=== PATIENT | female | born 1950 | race Caucasian/White ===

== ENCOUNTER 2017-06-26 10:49 | Inpatient (IN) ==
[2017-06-26 11:35] LABS: Bilirubin,Urine Negative (Negative); Blood,Urine Trace (Negative); Clarity,Urine Clear (Clear); Color,Urine Yellow (Yellow); Glucose,Urine (UA) Normal (Normal); Ketones,Urine Negative (Negative); Leukocyte Esterase,Urine Negative (Negative); Nitrite,Urine Negative (Negative); PH,Urine 6.5 pH Units (5.0-8.0); Protein,Urine Negative (Neg-Trace); Specific Gravity,Urine 1.011 (1.010-1.025); Urobilinogen,Urine Normal (Normal)
[2017-06-26 11:36] LABS: Bacteria,Urine None Seen per hpf (None-Few); Hyaline Casts,Urine None Seen per lpf (None-Few); Squamous Epithelial Cell,Urine Many per lpf (None-Few); WBC,Urine 0-3 per hpf (0-3)
[2017-06-26 12:24] LABS: Basophils # 0.1 K/mcL (0.0-0.2); Basophils % 0.9 %; Eosinophils # 0.1 K/mcL (0.0-0.6); Eosinophils % 0.8 %; Hematocrit 47.8 % (35.3-44.9); Immature Granulocytes % 0.2 % (0-4); Lymphocytes # 3.1 K/mcL (0.6-4.6); Lymphocytes % 35.1 %; Mean Corpuscular HGB Conc 33.5 g/dL (31.6-35.5); Mean Corpuscular Hemoglobin 29.9 pg (28.0-33.3); Mean Corpuscular Volume 89.3 fL (83.0-100.0); Mean Platelet Volume 10.1 fL (9.4-12.4); Monocytes # 0.4 K/mcL (0.0-1.3); Monocytes % 4.4 %; Neutrophils # 5.2 K/mcL (1.6-8.9); Platelet Count 245 K/mcL (140-400); Red Blood Count 5.35 M/mcL (3.82-4.97); Red Cell Distribution Width 14.2 % (11.5-14.5); Segmented Neutrophils % 58.6 %
[2017-06-26 12:39] LABS: Alanine Aminotransferase 6 Units/L (0-55); Albumin 3.5 g/dL (3.5-5.0); Alkaline Phosphatase 91 Units/L (38-126); Aspartate Amino Transferase 12 Units/L (5-34); BUN/Creatinine Ratio 9 (6-26); Bilirubin,Direct 0.2 mg/dL (0.0-0.5); Bilirubin,Indirect 0.3 mg/dL (0.0-1.2); Bilirubin,Total 0.5 mg/dL (0.2-1.2); Blood Urea Nitrogen 10 mg/dL (7-20); Calcium 9.3 mg/dL (8.6-10.8); Carbon Dioxide 27 mEq/L (19-29); Chloride 106 mEq/L (98-109); Globulin 3.4 g/dL (2.4-3.5); Glucose 92 mg/dL (70-99); Lipase 61 Units/L (8-78); Osmolality,Calculated 293 (280-300); Potassium 3.7 mEq/L (3.5-4.5); Sodium 142 mEq/L (136-145); Total Protein 6.9 g/dL (6.0-8.3); eGFR For African Americans > 60 (> 60); eGFR For Non-African Americans 51 (> 60)
[2017-06-26] MEDS ORDERED: Ondansetron 4 MG/2 ML VIAL IVP ONE (13:43)
[2017-06-26] MEDS ORDERED: *HR* Morphine 2 MG/ML SYRINGE IVP ONE (15:39)
--- NOTE | 2017-06-26 15:42 | Emergency Department Note ---
Disposition Clinical Impression: Aortic dissection, thoracoabdominal Hypertension Qualifiers: Hypertension type: essential hypertension Qualified Code(s): I10 - Essential ( primary) hypertension Disposition: Admitted As Inpatient Condition: Critical Abdominal Pain HPI - General Chief Complaint: ED Abdominal Pain Stated Complaint: abd pain since thursday Time Seen by Provider: 06/26/17 11:48 Source: patient Mode of arrival: ambulatory Limitations: no limitations Nursing Notes Reviewed: Yes Vital Signs Reviewed: Yes - History of Present Illness HPI Narrative: 67-year-old female brought to the emergency department with concerns of abdominal pain for the past 3 days. Patient states symptoms started acutely 3 days ago and have fluctuated since that time. Patient is unable to localize pain although she does state that she has pain that is bad in the right upper quadrant as well as the left lower quadrant. Patient reports intermittent episodes of loose stool but denies hematochezia or melena. Patient denies recent trauma. She has no history of fever, chills, vomiting, chest pain. Patient denies near syncopal episodes. Pain Scale: 6 - Related Data Home Medications Medication Instructions Recorded Confirmed Albuterol Sulfate [Ventolin Hfa] 2 puff IH Q4H PRN 06/26/17 06/26/17 Lisinopril [Zestril] 20 mg PO DAILY 06/26/17 06/26/17 Meclizine HCl [Verticalm] 25 mg PO TID PRN 06/26/17 06/26/17 Metoprolol [Lopressor] 25 mg PO BID 06/26/17 06/26/17 Nystatin POWDER [Nystop] 1 appl TP BID 06/26/17 06/26/17 Pravastatin Sodium [Pravachol] 40 mg PO HS 06/26/17 06/26/17 Ranitidine HCl [Zantac] 150 mg PO BID 06/26/17 06/26/17 hydroCHLOROthiazide 25 mg PO DAILY PRN 06/26/17 06/26/17 [Hydrochlorothiazide] Allergies Allergy/AdvReac Type Severity Reaction Status Date / Time No Known Allergies Allergy Verified 04/12/16 12:43 All systems ED: reviewed and negative except as stated. Review of Systems: As Per HPI Constitutional: Denies: fever, chills, weakness ENT ED: Denies: ear pain, throat pain, dental pain Cardiovascular: Denies: chest pain, palpitations Respiratory: Denies: cough, dyspnea, wheezes Gastrointestinal: Reports: abdominal pain, nausea. Denies: vomiting, diarrhea, hematemesis, melena, hematochezia Genitourinary: Denies: urgency Musculoskeletal: Denies: back pain Integumentary: Denies: rash, abrasion Neurological: Denies: headache, weakness, numbness Psychiatric: Denies: anxiety, depression Hematological/Lymphatic: Denies: easy bleeding, easy bruising Abdominal Pain PMH - Past Medical History Medical history: Reports: COPD, GERD, hyperlipidemia, hypertension, other Female Surgical History: Reports: hysterectomy, other [employer] history: Reports: no [employer] history Psychiatric history: Reports: anxiety - Social History Smoking status: Current every day smoker Alcohol use: Reports: none Drug use: Reports: none Physical Exam General: Alert and in no acute distress Skin: Warm, dry, intact Head: Normocephalic and atraumatic Neck: Supple, trachea midline and no tenderness Cardiovascular: RRR, no murmur, normal perfusion Respiratory: CTAB, no wheezing, cough, or respiratory distress Musculoskeletal: Normal strength, no tenderness, swelling or deformity GI: Soft, tender to palpation of the left lower quadrant without evidence of rigidity, guarding, or rebound. nondistended. Bowel sounds present Neuro: A&O to person, place, time and situation. No focal deficits noted on exam Psychiatric: cooperative and appropriate mood and affect. - General General appearance: alert, in no apparent distress Course Vital Signs Temperature 98 F 06/26/17 11:13 Pulse Rate 81 06/26/17 11:13 Respiratory Rate 16 06/26/17 11:13 Blood Pressure 171/121 06/26/17 11:13 O2 Sat by Pulse Oximetry 98 06/26/17 11:13 Temperature 98.6 F 06/26/17 20:10 Pulse Rate 72 06/26/17 21:00 Respiratory Rate 19 06/26/17 21:00 Blood Pressure 84/64 06/26/17 21:00 O2 Sat by Pulse Oximetry 89 06/26/17 21:00 Oxygen Delivery Oxygen Delivery Room Air Abdominal Pain - MDM Narrative Medical decision making narrative: CT of the abdomen was ordered to evaluate for possible colitis however CT results showed an aortic dissection. Patient's blood pressure was elevated at 171 systolic and as well was started to maintain BP at 120s systolic blood pressure. I spoke with Dr. Duarte who recommended patient was candidate for medical management in that the aortic dissection did not cause occlusion of any of the main vessels in the abdomen and was part of the descending aorta. Patient's blood pressure initially spiked after learning the news of a aortic dissection however BP improved with esmolol and further counseling. Patient will be admitted to the ICU for further care and evaluation. Patient evaluated by ICU physician in the emergency department. - Medical Records Medical records reviewed: Yes I reviewed the patient's medical records. - Lab Data Lab results reviewed: Yes I reviewed the patient's lab results. Result diagrams: 06/26/17 12:04 06/26/17 18:06 Lab Results 06/26/17 06/26/17 06/26/17 Range/Units 11:26 12:04 12:04 WBC 8.9 (4.3-11.1) K/mcL RBC 5.35 H (3.82-4.97) M/mcL Hgb 16.0 H (11.5-15.4) g/dL Hct 47.8 H (35.3-44.9) % MCV 89.3 (83.0-100.0) fL MCH 29.9 (28.0-33.3) pg MCHC 33.5 (31.6-35.5) g/dL RDW 14.2 (11.5-14.5) % Plt Count 245 (140-400) K/mcL MPV 10.1 (9.4-12.4) fL Immature Gran % 0.2 (0-4) % Seg Neutrophils % 58.6 % Lymphocytes % 35.1 % Monocytes % 4.4 % Eosinophils % 0.8 % Basophils % 0.9 % Neutrophils # 5.2 (1.6-8.9) K/mcL Lymphocytes # 3.1 (0.6-4.6) K/mcL Monocytes # 0.4 (0.0-1.3) K/mcL Eosinophils # 0.1 (0.0-0.6) K/mcL Basophils # 0.1 (0.0-0.2) K/mcL Sodium 142 (136-145) mEq/L Potassium 3.7 (3.5-4.5) mEq/L Chloride 106 (98-109) mEq/L Carbon Dioxide 27 (19-29) mEq/L BUN 10 (7-20) mg/dL Creatinine 1.08 (0.57-1.11) mg/dL Est GFR ( Amer) > 60 (> 60) Est GFR (Non-Af Amer) 51 L (> 60) BUN/Creatinine Ratio 9 (6-26) Glucose 92 (70-99) mg/dL Calculated Osmolality 293 (280-300) Lactic Acid (0.5-2.2) mmol/L Calcium 9.3 (8.6-10.8) mg/dL Total Bilirubin 0.5 (0.2-1.2) mg/dL Direct Bilirubin 0.2 (0.0-0.5) mg/dL Indirect Bilirubin 0.3 (0.0-1.2) mg/dL AST 12 (5-34) Units/L ALT 6 (0-55) Units/L Alkaline Phosphatase 91 (38-126) Units/L Troponin I (0-0.03) ng/mL Serum Total Protein 6.9 (6.0-8.3) g/dL Albumin 3.5 (3.5-5.0) g/dL Globulin 3.4 (2.4-3.5) g/dL Albumin/Globulin Ratio 1.0 L (1.1-2.2) Lipase 61 (8-78) Units/L Urine Color Yellow (Yellow) Urine Clarity Clear (Clear) Urine pH 6.5 (5.0-8.0) pH Units Ur Specific [place] 1.011 (1.010-1.025) Urine Protein Negative (Neg-Trace) mg/dL Urine Glucose (UA) Normal (Normal) mg/dL Urine Ketones Negative (Negative) mg/dL Urine Blood Trace H (Negative) Urine Nitrite Negative (Negative) Urine Bilirubin Negative (Negative) Urine Urobilinogen Normal (Normal) mg/dL Ur Leukocyte Esterase Negative (Negative) Urine Microscopic RBC 5-15 H (0-3) per hpf Urine Microscopic WBC 0-3 (0-3) per hpf Ur Squamous Epith Cells Many H (None-Few) per lpf Urine Bacteria None Seen (None-Few) per hpf Hyaline Casts None Seen (None-Few) per lpf Ur Culture Indicated? NO (NO) 06/26/17 06/26/17 Range/Units 12:17 16:57 WBC (4.3-11.1) K/mcL RBC (3.82-4.97) M/mcL Hgb (11.5-15.4) g/dL Hct (35.3-44.9) % MCV (83.0-100.0) fL MCH (28.0-33.3) pg MCHC (31.6-35.5) g/dL RDW (11.5-14.5) % Plt Count (140-400) K/mcL MPV (9.4-12.4) fL Immature Gran % (0-4) % Seg Neutrophils % % Lymphocytes % % Monocytes % % Eosinophils % % Basophils % % Neutrophils # (1.6-8.9) K/mcL Lymphocytes # (0.6-4.6) K/mcL Monocytes # (0.0-1.3) K/mcL Eosinophils # (0.0-0.6) K/mcL Basophils # (0.0-0.2) K/mcL Sodium (136-145) mEq/L Potassium (3.5-4.5) mEq/L Chloride (98-109) mEq/L Carbon Dioxide (19-29) mEq/L BUN (7-20) mg/dL Creatinine (0.57-1.11) mg/dL Est GFR ( Amer) (> 60) Est GFR (Non-Af Amer) (> 60) BUN/Creatinine Ratio (6-26) Glucose (70-99) mg/dL Calculated Osmolality (280-300) Lactic Acid 0.7 (0.5-2.2) mmol/L Calcium (8.6-10.8) mg/dL Total Bilirubin (0.2-1.2) mg/dL Direct Bilirubin (0.0-0.5) mg/dL Indirect Bilirubin (0.0-1.2) mg/dL AST (5-34) Units/L ALT (0-55) Units/L Alkaline Phosphatase (38-126) Units/L Troponin I 0.00 (0-0.03) ng/mL Serum Total Protein (6.0-8.3) g/dL Albumin (3.5-5.0) g/dL Globulin (2.4-3.5) g/dL Albumin/Globulin Ratio (1.1-2.2) Lipase (8-78) Units/L Urine Color (Yellow) Urine Clarity (Clear) Urine pH (5.0-8.0) pH Units Ur Specific [place] (1.010-1.025) Urine Protein (Neg-Trace) mg/dL Urine Glucose (UA) (Normal) mg/dL Urine Ketones (Negative) mg/dL Urine Blood (Negative) Urine Nitrite (Negative) Urine Bilirubin (Negative) Urine Urobilinogen (Normal) mg/dL Ur Leukocyte Esterase (Negative) Urine Microscopic RBC (0-3) per hpf Urine Microscopic WBC (0-3) per hpf Ur Squamous Epith Cells (None-Few) per lpf Urine Bacteria (None-Few) per hpf Hyaline Casts (None-Few) per lpf Ur Culture Indicated? (NO) - Radiology Data Radiology results reviewed: Yes I reviewed the patient's radiology results.
[2017-06-26] MEDS ORDERED: Esmolol 2.5 GM/250 ML MLS IVC SCH ×2 (15:45→17:17)
[2017-06-26] MEDS ORDERED: Naloxone 0.4 MG/ML INJ IVP PRN (17:14)
[2017-06-26] MEDS ORDERED: *HR* Morphine 2 MG/ML SYRINGE IVP PRN (17:14)
--- NOTE | 2017-06-26 17:22 | Pulmonology History & Physical ---
<MilanMiguel A geiger Kyara - Last Filed: 06/26/17 17:52> Date of Encounter: 06/26/17 Time of Encounter: 17:22 Assessment and Plan (1) Aortic dissection, thoracoabdominal Current visit: Yes Status: Acute Patient has evidence of descending aortic dissection, DeBakey IIIB, on CT scan. Appears to start at the midthoracic level and descend to approximately just superior to the renal arteries. No flow limitation per radiology. No evidence of involvement of the vessels branching off the aorta as creatinine is normal, lactic acid is normal, patient has good urine output. Likely related to uncontrolled hypertension as well as smoking and hyperlipidemia. Will aggressively control the patient's blood pressure with esmolol drip with a goal systolic blood pressure of less than 120. There does not appear to be a surgical indication at this time however we have asked vascular surgery to evaluate the patient. Will continue with vascular checks hourly for 2 hours and then every 2 hours thereafter. Will trend lactate, recheck BMP and monitor urine output. (2) Hypertension Current visit: Yes Status: Acute Uncontrolled at this time, likely contributing to the patient's aortic dissection as discussed above. Patient is currently on an esmolol drip with a goal systolic blood pressure less than 120. Patient will need aggressive blood pressure management at discharge. Qualifiers: Hypertension type: essential hypertension Qualified Code(s): I10 - Essential (primary) hypertension (3) Hyperlipidemia Current visit: Yes Status: Acute Likely contributing to the patient's aortic dissection as discussed above. Holding meds at this time as the patient is nothing by mouth however will restart statin once the patient is able to eat. Qualifiers: Hyperlipidemia type: unspecified Qualified Code(s): E78.5 - Hyperlipidemia , unspecified (4) Anxiety Current visit: Yes Status: Acute Patient has significant anxiety regarding her condition and reports taking Xanax at home. We will give Ativan 1 mg every 6 when necessary. (5) DVT prophylaxis Current visit: Yes Status: Acute Chemical DVT prophylaxis is contraindicated in the setting of aortic dissection. Will order EPCD's History of Present Illness Chief complaint: Abdominal pain HPI: Ms. Bustos is a 67 year old female with history of hypertension, hyperlipidemia who presents with abdominal pain. She states her pain started on Thursday. It was sudden onset and sharp in the center of her abdomen. She states the pain has been constant since then. She has also had nausea that started at the same time. She states her nausea is worse with eating. She also reports diarrhea with eating. She also reports occasional intermittent chest pain. She denies headache, neck pain, syncopal episodes, vision changes, numbness, tingling, weakness, cool extremities. She reports normal urine output. Past Med Surg Social Fam HX - Past Medical History Medical history: COPD, GERD, hyperlipidemia, hypertension, other Psychiatric history: anxiety - Past Surgical History Surgical History: non-contributory - Social History Smoking Status: Current every day smoker Smokeless Tobacco Status: No Alcohol use: none Drug use: none Medications and Allergies Albuterol Sulfate [Ventolin Hfa] 2 puff IH Q4H PRN 06/26/17 [History] Lisinopril [Zestril] 20 mg PO DAILY 06/26/17 [History] Meclizine HCl [Verticalm] 25 mg PO TID PRN 06/26/17 [History] Metoprolol [Lopressor] 25 mg PO BID 06/26/17 [History] Nystatin POWDER [Nystop] 1 appl TP BID 06/26/17 [History] Pravastatin Sodium [Pravachol] 40 mg PO HS 06/26/17 [History] Ranitidine HCl [Zantac] 150 mg PO BID 06/26/17 [History] hydroCHLOROthiazide [Hydrochlorothiazide] 25 mg PO DAILY PRN 06/26/17 [History] 3 Allergy/AdvReac Type Severity Reaction Status Date / Time No Known Allergies Allergy Verified 04/12/16 12:43 All Systems: A 10-system review of systems was performed and is negative for pertinent findings except as documented above in the HPI. - Constitutional Constitutional: no chills, no fever(s) - EENT Nose, mouth and throat: no neck pain - Cardiovascular Cardiovascular: chest pain, no claudication, no dyspnea, no leg edema, no syncope - Respiratory Respiratory: no cough, no dyspnea - Gastrointestinal Gastrointestinal: abdominal pain, diarrhea, nausea, no hematemesis, no hematochezia, no melena, no vomiting - Genitourinary Genitourinary: no dysuria, no urinary frequency - Musculoskeletal Musculoskeletal: no weakness, no numbness, no radiating pain into limb, no stiffness, no tingling - Neurological Neurological: no abnormal gait, no confusion, no dizziness, no numbness, no syncope - Psychiatric Psychiatric: anxiety - Endocrine Endocrine: no palpitations Physical Examination General appearance: no acute distress ENT: oropharynx moist Effort: normal Auscultation: bilateral: clear Cardiovascular: regular rate and rhythm Gastrointestinal: normoactive bowel sounds, soft, tender (Diffuse) Extremities: no cyanosis, no edema, no clubbing, pink and warm, pulses normal ( Upper and lower extremities, bilaterally), no ischemia or petechiae normal mental status, non-focal exam mood appropriate, anxious Results - Laboratory Findings CBC and BMP: 06/26/17 12:04 06/26/17 12:04 Abnormal lab findings: Abnormal lab results RBC 5.35 M/mcL (3.82-4.97) H 06/26/17 12:04 Hgb 16.0 g/dL (11.5-15.4) H 06/26/17 12:04 Hct 47.8 % (35.3-44.9) H 06/26/17 12:04 Est GFR (Non-Af Amer) 51 (> 60) L 06/26/17 12:04 Albumin/Globulin Ratio 1.0 (1.1-2.2) L 06/26/17 12:04 Urine Blood Trace (Negative) H 06/26/17 11:26 Urine Microscopic RBC 5-15 per hpf (0-3) H 06/26/17 11:26 Ur Squamous Epith Cells Many per lpf (None-Few) H 06/26/17 11:26 <Ez Gallagher W - Last Filed: 06/26/17 19:09> Date of Encounter: 06/26/17 History of Present Illness HPI: Ms. Bustos is a 67 year old female All Systems: A 10-system review of systems was performed and is negative for pertinent findings except as documented above in the HPI. Physical Examination Vital Signs: Vital Signs, Last 4 Hours Pulse Resp BP Pulse Ox 06/26/17 17:24 63 18 164/104 92 Results - Laboratory Findings CBC and BMP: 06/26/17 12:04 06/26/17 18:06 Abnormal lab findings: Abnormal lab results RBC 5.35 M/mcL (3.82-4.97) H 06/26/17 12:04 Hgb 16.0 g/dL (11.5-15.4) H 06/26/17 12:04 Hct 47.8 % (35.3-44.9) H 06/26/17 12:04 Est GFR (Non-Af Amer) 51 (> 60) L 06/26/17 12:04 Albumin/Globulin Ratio 1.0 (1.1-2.2) L 06/26/17 12:04 Urine Blood Trace (Negative) H 06/26/17 11:26 Urine Microscopic RBC 5-15 per hpf (0-3) H 06/26/17 11:26 Ur Squamous Epith Cells Many per lpf (None-Few) H 06/26/17 11:26 - Attending Attestation I examined this patient and my medical decision-making was reviewed with the Resident Physician. I agree with the documented findings, disposition and treatment plan as described except to the extent set forth below. We independently had [id number] contact with the patient Patient seen and examined at bedside in the ED. Labs, radiology, chart personally reviewed. Neuropsych: Awake and alert no focal deficits on exam Pulm: History of tobacco abuse smoking cessation counseling given. No acute pulmonary issues. Cards: Type b (distal) aortic dissection without evidence of branch artery involvement at this time. Vascular Surgery Consulted I spoke directly with Dr Duarte on phone and he has graciously agreed to evaluate this patient for end goals of medical management and to follow for possible complications requiring surgical intervention. Goal SBP around 120 with HR approx 60. Start with Esmolol infusion can add Vasodilator (e.g. nitropusside) if needed. Frequent Neurovascular checks. Distal pulses on my exam were all symmetric and easily palpable. FEN-GI: NPO for now. No evidence of pancreatitis or obstruction on imaging/ labs. LFTs wnl. Renal: sCr wnl no ana. monitor UOP. 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 Will also monitor Sao2 overnight for desat. Consider outpatient PSG. Endo: Glucose Monitored Integ/MSK: Skin Care per routine ICU Nursing Protocol to prevent ulcers. Dispo: Admit to ICU for close BP monitoring and vascular checks CODE: Full Code. All questions answered at bedside.
[2017-06-26] MEDS ORDERED: *HR* LORazepam 2 MG/ML VIAL IVP PRN (18:03)
[2017-06-26] MEDS: Ringers Solution, Lactated 1,000 ML IVC SCH (18:07)
[2017-06-26 18:26] LABS: BUN/Creatinine Ratio 10 (6-26); Blood Urea Nitrogen 10 mg/dL (7-20); Calcium 9.5 mg/dL (8.6-10.8); Carbon Dioxide 25 mEq/L (19-29); Chloride 106 mEq/L (98-109); Glucose 83 mg/dL (70-99); Osmolality,Calculated 286 (280-300); Sodium 139 mEq/L (136-145); eGFR For African Americans > 60 (> 60); eGFR For Non-African Americans 56 (> 60)
--- NOTE | 2017-06-26 18:55 | Vascular/Endovasc Consult Note ---
Date of Encounter: 06/26/17 Time of Encounter: 18:40 Assessment and Plan (1) Aortic dissection, thoracoabdominal Current Visit: Yes Status: Chronic The pathophysiology and natural history of aortic dissections was discussed with the patient and all questions were answered. This patient has a Type B aortic dissection which begins in the midthoracic aorta and extends to, but does not include the renal arteries. There is neither an intimal flap or any flow in a false lumen. There are aortic calcifications at the proximal end of the area of concern. These calcifications were present on her CT dated 11/16/16. Furthermore, the patient denies any acute chest, or back pain. This all suggests a chronic process rather than an acute aortic dissection. The dissection does not involve any mesenteric vessels and does not reduce aortic flow. The patient has strong, palpable pedal pulses. There is no indication for vascular intervention and the patients current gastrointestinal complaints appear unrelated to the aortic dissection. Recommend repeat CT scan in 3 months. Patient may follow-up in vascular clinic. This patient and her images were discussed with Dr. Suarez and Dr. Gallagher. (2) Abdominal pain Current Visit: Yes Status: Chronic The patient reports left sided abdominal pain which is greatest in the left lower quadrant for the last 4 days. She denies any fevers or chills. She denies emesis, but reports nausea and diarrhea after eating. She denies any rectal bleeding or melena. Her left lower quadrant is tender on physical exam. Her WBC count and her lactic acid are normal. As previously stated, her symptoms are remote from her chronic thoracic aortic dissection. Further evaluation of her gastrointestinal complaints is warranted. Qualifiers: Abdominal location: left lower quadrant Qualified Code(s): R10.32 - Left lower quadrant pain (3) Hyperlipidemia Current Visit: Yes Status: Acute Qualifiers: Hyperlipidemia type: unspecified Qualified Code(s): E78.5 - Hyperlipidemia , unspecified (4) Hypertension Current Visit: Yes Status: Acute Qualifiers: Hypertension type: essential hypertension Qualified Code(s): I10 - Essential (primary) hypertension - History of Present Illness Consult date: 06/26/17 Requesting physician: Ez Gallagher Consult reason: aortic dissection Chief complaint: abdominal pain History of present illness: Ms. Bustos is a 67 year old female who reports that on 06/23/17 she began to experience left lower quadrant pain associated with nausea and diarrhea. She reports that she has had episodes of diarrhea after eating during the last few days. She denies any fevers or chills. She denies any vomiting. She denies rectal bleeding or melena. Due to her persistent symptoms, she presented to the ER for further evaluation. part of her evaluation she underwent a a CT scan of the chest, abdomen and pelvis. A thoracic aortic dissection was described. The patient was admitted to [facility] ICU and vascular surgery was consulted for further evaluation. The patient denies any acute onset chest or back pain. She denies any shortness of breath. Past Med Surg Social Fam HX - Past Medical History Medical history: COPD, GERD, hyperlipidemia, hypertension, other Psychiatric history: anxiety - Past Surgical History Surgical History: non-contributory - Social History Smoking Status: Current every day smoker Smokeless Tobacco Status: No Alcohol use: none Drug use: none Medications and Allergies Albuterol Sulfate [Ventolin Hfa] 2 puff IH Q4H PRN 06/26/17 [History] Lisinopril [Zestril] 20 mg PO DAILY 06/26/17 [History] Meclizine HCl [Verticalm] 25 mg PO TID PRN 06/26/17 [History] Metoprolol [Lopressor] 25 mg PO BID 06/26/17 [History] Nystatin POWDER [Nystop] 1 appl TP BID 06/26/17 [History] Pravastatin Sodium [Pravachol] 40 mg PO HS 06/26/17 [History] Ranitidine HCl [Zantac] 150 mg PO BID 06/26/17 [History] hydroCHLOROthiazide [Hydrochlorothiazide] 25 mg PO DAILY PRN 06/26/17 [History] 3 Allergy/AdvReac Type Severity Reaction Status Date / Time No Known Allergies Allergy Verified 04/12/16 12:43 All Systems Review: A 10-system review of systems was performed and is negative for pertinent findings except as documented above in the HPI. - Constitutional Constitutional: no chills, no fever(s), no headache(s) - EENT Eyes: no blurred vision - Cardiovascular Cardiovascular: no chest pain at rest, no chest pain with exertion, no dyspnea at rest, no dyspnea on exertion - Gastrointestinal Gastrointestinal: abdominal pain, diarrhea, no hematochezia, no melena Exam Vital Signs, Last 4 Hours Temp Pulse Resp BP Pulse Ox 06/26/17 17:48 100.4 F H 71 22 151/104 93 06/26/17 17:26 18 151/94 06/26/17 17:24 63 18 164/104 92 General: Present: Conversant, No Apparent Distress HEENT: Present: Atraumatic, Trachea midline, Pupils equal Neck: Absent: JVD, Lymphadenopathy Cardiac: Present: Reg Rate and Rhythm Lungs: Present: Normal Breath Sounds, No Wheeze, Rales, Rhonchi Neuro: Present: Alert and responsive, No focal deficits noted, Motor nerves grossly intact, Sensory nerves grossly intact Abdomen: Present: Soft, Other (left sided abdominal tenderness greatest in the left lower quadrant, no rebound or guarding). Absent: Masses Vascular: Present: Normal capillary refill, Pulse, normal. Absent: Cyanosis, Edema Skin: Absent: No rashes noted on visualized skin Musculoskeletal: Absent: No Chest Wall Tenderness Consult Discharge Plan - Plan Referrals: Charlotte Cortez CNP [Primary Care Provider] -
[2017-06-26] MEDS: *HR* Morphine 2 MG/ML SYRINGE IVP PRN (20:20)
[2017-06-26] MEDS: Ondansetron 4 MG/2 ML VIAL IVP PRN (20:29)
[2017-06-27] MEDS: Ondansetron 4 MG/2 ML VIAL IVP PRN (04:45)
[2017-06-27 05:59] LABS: Basophils % 0.4 %; Eosinophils # 0.1 K/mcL (0.0-0.6); Eosinophils % 1.2 %; Hematocrit 44.7 % (35.3-44.9); Hemoglobin 14.5 g/dL (11.5-15.4); Immature Granulocytes % 0.2 % (0-4); Lymphocytes # 1.9 K/mcL (0.6-4.6); Lymphocytes % 18.7 %; Mean Corpuscular HGB Conc 32.4 g/dL (31.6-35.5); Mean Corpuscular Hemoglobin 29.6 pg (28.0-33.3); Mean Corpuscular Volume 91.2 fL (83.0-100.0); Mean Platelet Volume 9.8 fL (9.4-12.4); Monocytes # 0.6 K/mcL (0.0-1.3); Monocytes % 5.4 %; Neutrophils # 7.7 K/mcL (1.6-8.9); Platelet Count 203 K/mcL (140-400); Red Cell Distribution Width 14.5 % (11.5-14.5); Segmented Neutrophils % 74.1 %
[2017-06-27 06:03] LABS: INR 1.1; Prothrombin Time 12.4 Seconds (9.4-12.1)
[2017-06-27 06:10] LABS: Calcium 8.9 mg/dL (8.6-10.8); Potassium 4.1 mEq/L (3.5-4.5)
[2017-06-27] MEDS: *HR* Morphine 2 MG/ML SYRINGE IVP PRN (06:13)
[2017-06-27] MEDS: Ringers Solution, Lactated 1,000 ML IVC SCH ×3 (06:13→22:33)
[2017-06-27] MEDS ORDERED: ALPRAZolam 0.5 MG TABLET PO PRN (07:25)
[2017-06-27] MEDS ORDERED: Ondansetron 4 MG/2 ML VIAL IVP PRN (07:47)
[2017-06-27] MEDS ORDERED: *HR* Morphine 2 MG/ML SYRINGE IVP PRN (07:47)
[2017-06-27] MEDS ORDERED: Naloxone 0.4 MG/ML INJ IVP PRN (07:47)
[2017-06-27] MEDS: ALPRAZolam 0.5 MG TABLET PO PRN ×2 (09:05→16:15)
--- NOTE | 2017-06-27 09:45 | Pulmonology Progress Note ---
Date of Encounter: 06/27/17 Time of Encounter: 09:45 Assessment and Plan (1) Aortic dissection, thoracoabdominal Current Visit: Yes Status: Chronic Seen by Vascular surgery who feels this is chronic. no acute surgical indication nor requirement for close BP monitoring/Infusion of anti HTN med. Needs overall better BP control tobacco cessation statin therapy and repeat CT with Vasc Surgery f/u in 3 months (2) Tobacco abuse Current Visit: Yes Status: Acute tobacco cessation counseling given. Nicotine patch prn (3) Hypertension Current Visit: Yes Status: Acute restart home Beta santana. hold ACei for slight increase in creatinine titration while inpatient Qualifiers: Hypertension type: essential hypertension Qualified Code(s): I10 - Essential (primary) hypertension (4) Anxiety Current Visit: Yes Status: Acute cont home dose of xanax. (5) Hyperlipidemia Current Visit: Yes Status: Acute cont statin Qualifiers: Hyperlipidemia type: unspecified Qualified Code(s): E78.5 - Hyperlipidemia , unspecified (6) DVT prophylaxis Current Visit: Yes Status: Acute ok for chemical dvt prophylaxis (7) Abdominal pain Current Visit: Yes Status: Chronic no acute evidence of obstruction on imaging. No evidence of pancreatitis or hepatobiliary process. ?Gastroenteritis. Antiemetics and pain control as needed. Will trial diet today. Stable for transfer to [facility] for ongoing care. Report called by resident to Dr Medina who kindly accepted this patient in transfer. Qualifiers: Abdominal location: left lower quadrant Qualified Code(s): R10.32 - Left lower quadrant pain Subjective Principal diagnosis: Abdominal Pain. Interval history: Did well overnight. Abdominal Pain is improving. Nausea also is improving with antiemetics. She is requesting to try and eat something. Objective PUL Vital signs: Last Vital Signs Temp 100.7 F H 06/27/17 08:30 Pulse 93 06/27/17 09:35 Resp 18 06/27/17 08:30 BP 102/67 06/27/17 08:30 Pulse Ox 93 06/27/17 08:30 General appearance: no acute distress Eyes: nonicteric ENT: oropharynx moist Auscultation: bilateral: clear Cardiovascular: regular rate and rhythm Gastrointestinal: normoactive bowel sounds Integumentary: normal Extremities: no cyanosis, no edema, no clubbing, pink and warm, pulses normal Musculoskeletal: no deformities normal mental status, non-focal exam mood appropriate Results - Laboratory Findings CBC and BMP: 06/27/17 05:53 06/27/17 05:53 PT/INR, D-dimer PT 12.4 Seconds (9.4-12.1) H 06/27/17 05:53 Abnormal lab findings: Abnormal lab results PT 12.4 Seconds (9.4-12.1) H 06/27/17 05:53 Creatinine 1.16 mg/dL (0.57-1.11) H 06/27/17 05:53 Est GFR ( Amer) 57 (> 60) L 06/27/17 05:53 Est GFR (Non-Af Amer) 47 (> 60) L 06/27/17 05:53 Albumin/Globulin Ratio 1.0 (1.1-2.2) L 06/26/17 12:04 Urine Blood Trace (Negative) H 06/26/17 11:26 Urine Microscopic RBC 5-15 per hpf (0-3) H 06/26/17 11:26 Ur Squamous Epith Cells Many per lpf (None-Few) H 06/26/17 11:26 - Clinical Findings Intake & Output: Intake & Output 06/26/17 06/27/17 06/27/17 23:59 07:59 15:59 Intake Total 40 / 40 1000 / 1000 Output Total 300 / 300 200 / 200 Balance -260 / -260 800 / 800 Weight 90.1 kg Consult Discharge Plan - Plan Referrals: Charlotte Cortez, [employer] [Primary Care Provider] -
[2017-06-27] MEDS ORDERED: Acetaminophen 325 MG TABLET PO ONE (12:58)
[2017-06-27] MEDS: Nicotine 14 MG PATCH.TD24 TD SCH (18:04)
[2017-06-27] MEDS ORDERED: *HR* Heparin 5,000 UNIT/ML VIAL SQ SCH (22:00)
[2017-06-28] MEDS: ALPRAZolam 0.5 MG TABLET PO PRN ×3 (06:26→21:47)
[2017-06-28] MEDS: Nicotine 14 MG PATCH.TD24 TD SCH (08:33)
--- NOTE | 2017-06-28 09:45 | Vascular/Endovas Progress Note ---
Date of Encounter: 06/27/17 Time of Encounter: 10:00 - Assessment and plan (1) Aortic dissection, thoracoabdominal Current Visit: Yes Status: Chronic The patient has a Type B aortic dissection which begins in the midthoracic aorta and extends to, but does not include the renal arteries. This appears to be a chronic asymptomatic aortic dissection. Recommend repeat CT scan in 3 months. Patient may follow-up in vascular clinic. (2) Abdominal pain Current Visit: Yes Status: Chronic Abdominal pain significantly improved. Patient will likely be transferred from the ICU and begin a diet. Qualifiers: Abdominal location: left lower quadrant Qualified Code(s): R10.32 - Left lower quadrant pain (3) Hyperlipidemia Current Visit: Yes Status: Acute She was counseled regarding atherosclerotic risk factor reduction. Qualifiers: Hyperlipidemia type: unspecified Qualified Code(s): E78.5 - Hyperlipidemia , unspecified (4) Hypertension Current Visit: Yes Status: Acute Qualifiers: Hypertension type: essential hypertension Qualified Code(s): I10 - Essential (primary) hypertension - Subjective Interval history: The patient reports that she is feeling better today. Her abdominal pain has decreased and she would like to eat. She denies any chest pain or shortness of breath. Vital Signs, Last 4 Hours Temp Pulse Resp BP Pulse Ox 06/28/17 07:54 98.6 F 71 18 146/86 93 - Physical Examination General: Present: Conversant, No Apparent Distress HEENT: Present: Pupils equal Cardiac: Absent: Reg Rate and Rhythm Lungs: Present: Normal Breath Sounds Neuro: Present: Alert and responsive, Motor nerves grossly intact, Sensory nerves grossly intact Vascular: Present: Normal capillary refill, Pulse, normal. Absent: Cyanosis, Edema Abdomen: Present: Soft, Other (mild left sided tendernerr) Skin: Present: No rashes noted on visualized skin Musculoskeletal: Present: No Chest Wall Tenderness - VTE Documentation of Mechanical Device: Intermittent pneumatic compression device Results 06/27/17 05:53 06/27/17 05:53 Consult Discharge Plan - Plan Referrals: Charlotte Cortez, [employer] [Primary Care Provider] -
[2017-06-28 14:45] LABS: Basophils % 0.4 %; Eosinophils # 0.3 K/mcL (0.0-0.6); Eosinophils % 2.9 %; Hematocrit 44.2 % (35.3-44.9); Hemoglobin 14.5 g/dL (11.5-15.4); Immature Granulocytes % 0.1 % (0-4); Immature Platelets 4.2 % (1.1-6.1); Lymphocytes # 3.2 K/mcL (0.6-4.6); Lymphocytes % 35.4 %; Mean Corpuscular HGB Conc 32.8 g/dL (31.6-35.5); Mean Corpuscular Hemoglobin 29.7 pg (28.0-33.3); Mean Corpuscular Volume 90.6 fL (83.0-100.0); Mean Platelet Volume 10.2 fL (9.4-12.4); Monocytes # 0.6 K/mcL (0.0-1.3); Neutrophils # 4.9 K/mcL (1.6-8.9); Platelet Count 203 K/mcL (140-400); Red Blood Count 4.88 M/mcL (3.82-4.97); Red Cell Distribution Width 13.9 % (11.5-14.5); Segmented Neutrophils % 54.2 %
[2017-06-28 14:56] LABS: BUN/Creatinine Ratio 12 (6-26); Blood Urea Nitrogen 12 mg/dL (7-20); Calcium 8.9 mg/dL (8.6-10.8); Carbon Dioxide 27 mEq/L (19-29); Chloride 105 mEq/L (98-109); Glucose 107 mg/dL (70-99); Osmolality,Calculated 290 (280-300); Phosphorous 2.7 mg/dL (2.3-4.7); Potassium 3.7 mEq/L (3.5-4.5); Sodium 140 mEq/L (136-145); eGFR For African Americans > 60 (> 60); eGFR For Non-African Americans 54 (> 60)
--- NOTE | 2017-06-28 18:02 | Internal Med Progress Note ---
Date of Encounter: 06/28/17 Time of Encounter: 05:00 - Assessment and plan (1) Aortic dissection, thoracoabdominal Current Visit: Yes Status: Chronic (2) Hypertension Current Visit: Yes Status: Acute Qualifiers: Hypertension type: essential hypertension Qualified Code(s): I10 - Essential (primary) hypertension (3) Anxiety Current Visit: Yes Status: Acute (4) Hyperlipidemia Current Visit: Yes Status: Acute Qualifiers: Hyperlipidemia type: unspecified Qualified Code(s): E78.5 - Hyperlipidemia , unspecified (5) Tobacco abuse Current Visit: Yes Status: Acute - Time Spent With Patient I had long discussion with patient and 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 Counseling about importance of diet controlling her blood pressure. Will add hydrochlorothiazide. Continue beta santana. Counseling patient about risk and benefit of continuing Prozac which was taking it the past Versus Xanax. Agree to start Prozac, continue Prozac Add BuSpar to help with Augmentation. Close monitoring of her blood pressure hydralazine as needed for systolic blood pressure more than 130, possible discharge exam 25 - 35 minutes - Subjective Interval history: Patient denies any abdominal pain, patient denies any nausea or vomiting. Patient denies any dizziness or lightheadedness. Patient is feeling anxious. Patient stated she was taking Xanax to help with anxiety. She used to take Prozac in the past which was helping with her anxiety. Patient denies any depression or suicidal ideation. Patient denies any chest pain or shortness of breath. Patient denies any dizziness - Constitutional Vitals: Temp Pulse Resp BP Pulse Ox 97.8 F 75 17 129/84 95 06/28/17 15:52 06/28/17 15:52 06/28/17 15:52 06/28/17 15:52 06/28/17 15:52 - Head Head exam: Present: atraumatic, normocephalic - Neck Neck exam general surgery: Present: supple, trachea midline. Absent: lymphadenopathy - Respiratory Respiratory exam: Absent: accessory muscle use, rales, rhonchi, wheezes - GI/Abdominal GI/Abdominal exam: Present: normal bowel sounds, soft. Absent: distended, tenderness - Extremities Exam Extremities exam: Present: warm. Absent: calf tenderness, cyanotic, pedal edema - Neurological Exam Neurological exam: Present: CN II-XII intact, no focal deficits Internal Medicine: Result - Labs CBC & Chem 7: 06/28/17 14:37 06/28/17 14:37 Labs: Short CBC 06/28/17 Range/Units 14:37 WBC 9.0 (4.3-11.1) K/mcL Hgb 14.5 (11.5-15.4) g/dL Hct 44.2 (35.3-44.9) % Plt Count 203 (140-400) K/mcL Neutrophils # 4.9 (1.6-8.9) K/mcL BMP 06/28/17 14:37 Sodium 140 Potassium 3.7 Chloride 105 Carbon Dioxide 27 BUN 12 Creatinine 1.02 Glucose 107 H Calcium 8.9 - ABG Interpretation ABG results: PT/INR, D-dimer PT 12.4 Seconds (9.4-12.1) H 06/27/17 05:53 - VTE Documentation of Mechanical Device: Intermittent pneumatic compression device Consult Discharge Plan - Plan Referrals: Charlotte Cortez, [employer] [Primary Care Provider] -
[2017-06-28] MEDS: FLUoxetine 20 MG CAPSULE PO SCH (18:45)
[2017-06-29] MEDS: ALPRAZolam 0.5 MG TABLET PO PRN (05:50)
--- NOTE | 2017-06-29 09:25 | Electrocardiograph Report ---
[place] [id number] Test Date: 2017-06-26 Pat Name: Debra Bustos Department: 109 Room: [facility] Gender: F Sander Hand: CHINMAY : 1950 Requested By: Eduardo Suarez Order Number: [id number] Reading MD: Cm Tucker DO Measurements Intervals [place] Rate: 69 P: 66 NM: 184 QRS: -40 QRSD: 82 T: 40 QT: 379 QTc: 398 Interpretive Statements SINUS RHYTHM LEFT AXIS DEVIATION Electronically Signed On 06-29-2017 9:23:39 EST by Cm Tucker DO
[2017-06-29] MEDS: Nicotine 14 MG PATCH.TD24 TD SCH (09:39)
[2017-06-29] MEDS: FLUoxetine 20 MG CAPSULE PO SCH (09:40)
[2017-06-29 11:04] VITALS: BP 126/84
--- NOTE | 2017-06-29 11:42 | Discharge Summary ---
Date of Encounter: 06/29/17 Time of Encounter: 13:44 - Discharge Diagnosis (1) Aortic dissection, thoracoabdominal Priority: Primary Status: Chronic (2) Hypertension Priority: Primary Status: Acute Qualifiers: Hypertension type: essential hypertension Qualified Code(s): I10 - Essential (primary) hypertension (3) Anxiety Priority: Secondary Status: Acute (4) Hyperlipidemia Priority: Secondary Status: Acute Qualifiers: Hyperlipidemia type: unspecified Qualified Code(s): E78.5 - Hyperlipidemia , unspecified (5) Tobacco abuse Priority: Secondary Status: Acute - Discharge Medications Prescriptions: ALPRAZolam [Xanax 0.5 MG Tablet] 0.25 mg PO BID PRN #30 tablet PRN Reason: Anxiety Buspirone HCl [Buspar] 5 mg PO BID #180 tablet FLUoxetine HCl [Prozac] 20 mg PO DAILY #90 capsule Lisinopril-HCTZ 10-12.5 [Prinzide 10-12.5] 1 each PO DAILY #90 tablet Metoprolol XL (24 HR) Succ [Toprol XL] 50 mg PO DAILY #90 tab.er.24h Nicotine Patch [Nicoderm] 14 mg TD DAILY #30 patch.td24 Home Medications: Albuterol Sulfate [Ventolin Hfa] 2 puff IH Q4H PRN 06/26/17 [History] Meclizine HCl [Verticalm] 25 mg PO TID PRN 06/26/17 [History] Nystatin POWDER [Nystop] 1 appl TP BID 06/26/17 [History] Pravastatin Sodium [Pravachol] 40 mg PO HS 06/26/17 [History] Ranitidine HCl [Zantac] 150 mg PO BID 06/26/17 [History] ALPRAZolam [Xanax 0.5 MG Tablet] 0.25 mg PO BID PRN #30 tablet 06/29/17 [Rx] Buspirone HCl [Buspar] 5 mg PO BID #180 tablet 06/29/17 [Rx] FLUoxetine HCl [Prozac] 20 mg PO DAILY #90 capsule 06/29/17 [Rx] Lisinopril-HCTZ 10-12.5 [Prinzide 10-12.5] 1 each PO DAILY #90 tablet 06/29/17 [ Rx] Metoprolol XL (24 HR) Succ [Toprol XL] 50 mg PO DAILY #90 tab.er.24h 06/29/17 [ Rx] Nicotine Patch [Nicoderm] 14 mg TD DAILY #30 patch.td24 06/29/17 [Rx] Allergies/Adverse Reactions: 3 Allergy/AdvReac Type Severity Reaction Status Date / Time No Known Allergies Allergy Verified 04/12/16 12:43 Date of admission: 06/26/17 16:57 Primary care physician: Charlotte Cortez CNP Consults: 06/26/17 17:11 Consult to Vascular Surgery [CONS] Routine Consulting Provider: Vascular Surgery Julisa Reason for Consult: Aortic dissection (Dr. Gallagher spoke with Dr. Duarte) Time Notified: 17:00 Call Completed: Yes Discharging clinician: Gianni Mobley Anticipated date of discharge: 06/29/17 - Patient Status Disposition: Home, Self-Care Condition: Critical Functional capacity at discharge: independent ambulation Overall status at discharge: patient is not back to baseline - Discharge Instructions Instructions: Metoprolol (By mouth), Alprazolam (By mouth), Buspirone (By mouth ), Fluoxetine (By mouth), Nicotine (Absorbed through the skin), Lisinopril/ Hydrochlorothiazide (By mouth), Peripheral Vascular Disorders (DC), Chronic Hypertension (DC), Anxiety (DC) Follow Up With: Ahmet Duarte MD [Partnered Physician] - 07/13/17 3:50 pm Charlotte Cortez CNP [Primary Care Provider] - (Web requested 06/29/17. Call 06/30/18 ) - Diet and Activity Activity: increase activity as tolerated Diet: low fat, low cholesterol, low salt diet Hospital course: Ms. Bustos is a 67 year old female who reports that on 06/23/17 she began to experience left lower quadrant pain associated with nausea and diarrhea. She reports that she has had episodes of diarrhea after eating during the last few days. She denies any fevers or chills. She denies any vomiting. She denies rectal bleeding or melena. Due to her persistent symptoms, she presented to the ER for further evaluation. part of her evaluation she underwent a a CT scan of the chest, abdomen and pelvis. A thoracic aortic dissection was described. Her WBC count and her lactic acid are normal. patient was admitted to [facility] ICU and vascular surgery was consulted for further evaluation. The patient denies any acute onset chest or back pain. She denies any shortness of breath.Vascular surgery discussed pathophysiology and natural history of aortic dissections with the patient and all questions were answered. This patient has a Type B aortic dissection which begins in the midthoracic aorta and extends to, but does not include the renal arteries. There is neither an intimal flap or any flow in a false lumen. There are aortic calcifications at the proximal end of the area of concern. These calcifications were present on her CT dated 11/16/16. Furthermore, the patient denies any acute chest, or back pain. This all suggests a chronic process rather than an acute aortic dissection. The dissection does not involve any mesenteric vessels and does not reduce aortic flow. The patient has strong, palpable pedal pulses. There is no indication for vascular intervention and the patients current gastrointestinal complaints appear unrelated to the aortic dissection. Recommend repeat CT scan in 3 months. Patient may follow-up in vascular clinic. Blood pressure medication titrated. Patient placed on beta santana long-acting to help with compliance in addition hydrochlorothiazide and lisinopril. Patient has history of anxiety which per patient report contributing to her attack of severe hypertension. Medication was adjusted counseling patient to follow-up as an outpatient. Patient was on Prozac on the past medication was resumed in addition adding BuSpar to help with augmentation. Counseling patient against benzodiazepine. Counseling patient about tobacco cessation more than 25 minute nicotine patch prescribed. Counseling patient about risk for dissection. Patient need to follow up with vascular surgery as an outpatient Time spent discussing smoking cessation with patient: more than 10 minutes - Time Spent with Patient Total time spent providing and/or coordinating discharge services: Greater than 30 minutes - Constitutional Vitals: Temp Pulse Resp BP Pulse Ox 98.4 F 60 17 126/84 95 06/29/17 11:02 06/29/17 11:02 06/29/17 11:02 06/29/17 11:02 06/29/17 11:02 - VTE Documentation of Mechanical Device: Intermittent pneumatic compression device
== END 2017-06-29 15:46 | disposition home or self-care (01) | DRG 301 ==
LOC: EMEROO 10:49 → ICNU 16:57 → 2ANU 06-27 17:46
PROVIDERS: ADMIT Internal Medicine Hospice and Palliative Medicine; ATTEND Internal Medicine

== ENCOUNTER 2017-07-18 21:21 | Observation (INO) ==
[2017-07-18] MEDS ORDERED: Ipratropium/Albuterol Neb 3 ML IH ONE (22:24)
[2017-07-18] MEDS ORDERED: methylPREDNISolone 125 MG/2 ML VIAL IVP ONE (22:24)
--- NOTE | 2017-07-18 22:38 | Emergency Department Note ---
Disposition Clinical Impression: Acute exacerbation of chronic obstructive airways disease, Acute renal insufficiency Community acquired pneumonia Qualifiers: Laterality: left Lung location: upper lobe of lung Qualified Code(s): J18.1 - Lobar pneumonia, unspecified organism Disposition: Admitted As Inpatient Condition: Fair General Adult HPI - General Chief complaint: ED Shortness of Breath/Dyspnea Stated complaint: ADONIS Time Seen by Provider: 07/18/17 22:13 Source: patient Limitations: no limitations Nursing Notes Reviewed: Yes Vital Signs Reviewed: Yes - History of Present Illness HPI Narrative: 67-year-old female is emergent department with subjective fever, cough, feeling like her lungs rattling for 3 days. Patient does have a history of COPD. Patient reports feeling short of breath. Patient denies any hemoptysis but does admit to increasing sputum production. Patient denies any unilateral leg swelling, history of DVTs. Pain Scale: 6 - Related Data Home Medications Medication Instructions Recorded Confirmed Albuterol Sulfate [Ventolin Hfa] 2 puff IH Q4H PRN 06/26/17 06/26/17 Meclizine HCl [Verticalm] 25 mg PO TID PRN 06/26/17 06/26/17 Nystatin POWDER [Nystop] 1 appl TP BID 06/26/17 06/26/17 Pravastatin Sodium [Pravachol] 40 mg PO HS 06/26/17 06/26/17 Ranitidine HCl [Zantac] 150 mg PO BID 06/26/17 06/26/17 Previous Rx's Medication Instructions Recorded ALPRAZolam [Xanax 0.5 MG Tablet] 0.25 mg PO BID PRN #30 tablet 06/29/17 Buspirone HCl [Buspar] 5 mg PO BID #180 tablet 06/29/17 FLUoxetine HCl [Prozac] 20 mg PO DAILY #90 capsule 06/29/17 Lisinopril-HCTZ 10-12.5 [Prinzide 1 each PO DAILY #90 tablet 06/29/17 10-12.5] Metoprolol XL (24 HR) Succ [Toprol 50 mg PO DAILY #90 tab.er.24h 06/29/17 XL] Nicotine Patch [Nicoderm] 14 mg TD DAILY #30 patch.td24 06/29/17 Allergies Allergy/AdvReac Type Severity Reaction Status Date / Time No Known Allergies Allergy Verified 07/18/17 21:29 All systems ED: reviewed and negative except as stated. Review of Systems: As Per HPI Constitutional: Denies: fever Cardiovascular: Denies: chest pain Respiratory: Reports: cough, dyspnea, wheezes, sputum production. 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 - Social History Smoking Status: Current every day smoker Smokeless Tobacco Status: No Alcohol use: Reports: none Drug use: Reports: none Physical Exam General: Well Appearing, 67-year-old female, in no acute distress Head: autraumatic, EOMI, no conjuncitval pallor, no scleral icterus, Neck: neck soft, trachea midline Chest:: Equal chest wall rise Lungs: Diffuse wheezes throughout as well as rhonchi throughout Heart: normal heart sounds, normal rhythm, Abdomen: soft, non-tender, no rigidity, no guarding, no rebdound tenderness Integumentary: Skin warm, dry, and intact Neuro: Alert Psych: normal affect, normal mood - General Limitations: no limitations General appearance: alert, in no apparent distress Course Vital Signs Temperature 98.6 F 07/18/17 21:27 Pulse Rate 77 07/18/17 21:27 Respiratory Rate 18 07/18/17 21:27 Blood Pressure 131/85 07/18/17 21:27 O2 Sat by Pulse Oximetry 92 07/18/17 21:27 Temperature 98.6 F 07/18/17 21:27 Pulse Rate 85 07/19/17 01:22 Respiratory Rate 16 07/19/17 02:09 Blood Pressure 115/73 07/19/17 02:09 O2 Sat by Pulse Oximetry 93 07/19/17 01:22 Oxygen Delivery Oxygen Delivery Nasal Cannula Medical Decision Making - [facility] Narrative Medical decision making narrative: 67-year-old female with past medical history of smoking and COPD presents to the emergency department with worsening shortness of breath over the last couple days is concerning for possible pneumonia and COPD exacerbation. Chest x -ray reveals possible some small focal infiltrate within the lingula. We started Levaquin IV. The patient was given DuoNeb here in the emergency department as well as steroids. Oxygen saturation here prior to DuoNeb as well as 92% on room air. Troponin was negative. Patient does have a mild leukocytosis of 15.9. Patient does have worsening creatinine function at 1.26. Patient was low risk curb 65, however, patient became hypoxic upon ambulation around the emergency department at around 89%. Patient was placed on 2 L of oxygen via nasal cannula due to her hypoxia. Discussed with the hospitalist for admission occurred. Hospitalist reported that this patient had been admitted in the past and that he would add Zosyn to her regimen. I discussed the plan for admission with the patient and her at bedside agree for admission. Hospitalist wanted to place a d- dimer. This was elevated. We are currently awaiting results of CT angiogram of the chest at time of admission. Hospitalist that he will follow-up on this. Chest X-Ray 07/18/17 21:30 IMPRESSION: Possible small focal infiltrate within the lingula, atelectasis versus pneumonia. That should be followed to resolution. D/ / Josias Burris MD / Josias Burris MD Interpreting Provider: Josias Burris MD Chest X-Ray 07/18/17 21:30 IMPRESSION: Possible small focal infiltrate within the lingula, atelectasis versus pneumonia. That should be followed to resolution. D/ / Josias Burris MD / Josias Burris MD Interpreting Provider: Josias Burris MD Vital Signs Temperature 98.6 F 07/18/17 21:27 Pulse Rate 77 07/18/17 21:27 Respiratory Rate 18 07/18/17 21:27 Blood Pressure 131/85 07/18/17 21:27 O2 Sat by Pulse Oximetry 92 07/18/17 21:27 Temperature 98.6 F 07/18/17 21:27 Pulse Rate 80 07/18/17 22:43 Respiratory Rate 16 07/18/17 22:43 Blood Pressure 108/69 07/18/17 22:43 O2 Sat by Pulse Oximetry 99 07/18/17 22:43 Oxygen Delivery Oxygen Delivery Aerosol Mask - Lab Data Result diagrams: 07/18/17 22:41 07/18/17 22:41 Lab Results 07/18/17 07/18/17 07/18/17 Range/Units 22:41 22:41 22:41 WBC 15.9 H (4.3-11.1) K/mcL RBC 5.02 H (3.82-4.97) M/mcL Hgb 14.9 (11.5-15.4) g/dL Hct 45.1 H (35.3-44.9) % MCV 89.8 (83.0-100.0) fL MCH 29.7 (28.0-33.3) pg MCHC 33.0 (31.6-35.5) g/dL RDW 14.2 (11.5-14.5) % Plt Count 257 (140-400) K/mcL MPV 9.4 (9.4-12.4) fL Immature Gran % 0.4 (0-4) % Seg Neutrophils % 75.1 % Lymphocytes % 17.0 % Monocytes % 6.2 % Eosinophils % 0.8 % Basophils % 0.5 % Neutrophils # 11.9 H (1.6-8.9) K/mcL Lymphocytes # 2.7 (0.6-4.6) K/mcL Monocytes # 1.0 (0.0-1.3) K/mcL Eosinophils # 0.1 (0.0-0.6) K/mcL Basophils # 0.1 (0.0-0.2) K/mcL D-Dimer (0-500) ng/mLFEU Sodium 139 (136-145) mEq/L Potassium 3.7 (3.5-4.5) mEq/L Chloride 104 (98-109) mEq/L Carbon Dioxide 26 (19-29) mEq/L BUN 14 (7-20) mg/dL Creatinine 1.26 H (0.57-1.11) mg/dL Est GFR ( Amer) 52 L (> 60) Est GFR (Non-Af Amer) 43 L (> 60) BUN/Creatinine Ratio 11 (6-26) Glucose 101 H (70-99) mg/dL Calculated Osmolality 289 (280-300) Lactic Acid (0.5-2.2) mmol/L Calcium 8.9 (8.6-10.8) mg/dL Troponin I 0.00 (0-0.03) ng/mL 07/19/17 07/19/17 Range/Units 00:27 00:27 WBC (4.3-11.1) K/mcL RBC (3.82-4.97) M/mcL Hgb (11.5-15.4) g/dL Hct (35.3-44.9) % MCV (83.0-100.0) fL MCH (28.0-33.3) pg MCHC (31.6-35.5) g/dL RDW (11.5-14.5) % Plt Count (140-400) K/mcL MPV (9.4-12.4) fL Immature Gran % (0-4) % Seg Neutrophils % % Lymphocytes % % Monocytes % % Eosinophils % % Basophils % % Neutrophils # (1.6-8.9) K/mcL Lymphocytes # (0.6-4.6) K/mcL Monocytes # (0.0-1.3) K/mcL Eosinophils # (0.0-0.6) K/mcL Basophils # (0.0-0.2) K/mcL D-Dimer 978 H (0-500) ng/mLFEU Sodium (136-145) mEq/L Potassium (3.5-4.5) mEq/L Chloride (98-109) mEq/L Carbon Dioxide (19-29) mEq/L BUN (7-20) mg/dL Creatinine (0.57-1.11) mg/dL Est GFR ( Amer) (> 60) Est GFR (Non-Af Amer) (> 60) BUN/Creatinine Ratio (6-26) Glucose (70-99) mg/dL Calculated Osmolality (280-300) Lactic Acid 1.1 (0.5-2.2) mmol/L Calcium (8.6-10.8) mg/dL Troponin I (0-0.03) ng/mL - EKG Data EKG #1 EKG attestation: Yes I reviewed and interpreted this EKG. EKG results narrative: 21:34 Ventricular 80 bpm, [place] interval 167 ms, QRS duration 77 ms, QT 340 ms, QTC 384, left axis deviation. Sinus rhythm with a ventricular rate of 80 bpm. There are no ischemic ST changes noted on this electrocardiogram in comparison with a previous study performed on June 26, 2017.
[2017-07-18 23:09] LABS: Basophils # 0.1 K/mcL (0.0-0.2); Basophils % 0.5 %; Eosinophils # 0.1 K/mcL (0.0-0.6); Eosinophils % 0.8 %; Hematocrit 45.1 % (35.3-44.9); Hemoglobin 14.9 g/dL (11.5-15.4); Immature Granulocytes % 0.4 % (0-4); Lymphocytes # 2.7 K/mcL (0.6-4.6); Mean Corpuscular Hemoglobin 29.7 pg (28.0-33.3); Mean Corpuscular Volume 89.8 fL (83.0-100.0); Mean Platelet Volume 9.4 fL (9.4-12.4); Monocytes % 6.2 %; Neutrophils # 11.9 K/mcL (1.6-8.9); Platelet Count 257 K/mcL (140-400); Red Blood Count 5.02 M/mcL (3.82-4.97); Red Cell Distribution Width 14.2 % (11.5-14.5); Segmented Neutrophils % 75.1 %
[2017-07-18 23:22] LABS: Calcium 8.9 mg/dL (8.6-10.8); Potassium 3.7 mEq/L (3.5-4.5)
[2017-07-19] MEDS ORDERED: Levofloxacin 750 MG/150 ML 750 MG/150 ML BAG IVPB ONE (00:01)
[2017-07-19] MEDS ORDERED: 0.9 % Sodium Chloride 1,000 ML IVC ONE (00:02)
--- NOTE | 2017-07-19 00:02 | Emergency Department Note ---
START Narrative - START START: I examined this patient and my medical decision-making was reviewed with the Resident Physician. I agree with the documented findings, disposition and treatment plan as described except to the extent set forth below. Findings consistent with pneumonia. Given underlying lung disease as well as hypoxia at rest will treat with Levaquin, bronchodilators, steroids, proceed with admission. Despite her low curb 65 score do feel should benefit from admission given hypoxia rest. I spent greater than 35 minutes of critical care time resuscitating this acutely ill patient suffering from hypoxia. This is excluding billable procedures.
[2017-07-19] MEDS: 0.9 % Sodium Chloride 1,000 ML IVC ONE ×2 (00:35→02:44)
--- NOTE | 2017-07-19 01:24 | Internal Med History&Physical ---
Date of Encounter: 07/19/17 Time of Encounter: 01:22 Assessment and Plan (1) Healthcare-associated pneumonia Current visit: Yes Status: Acute She had a recent admission within the last 30 days and spent 4 days in the hospital. We will treat her with Zosyn and Levaquin. No need for vancomycin at this time as there is no clinical suspicion for MRSA pneumonia. (2) Acute exacerbation of chronic obstructive airways disease Current visit: Yes Status: Acute IV antibiotics. Start IV Solu-Medrol. Inhaled albuterol and ipratropium. (3) DVT prophylaxis Current visit: No Status: Acute Encourage ambulation. She does not qualify for pharmacological prophylaxis. (4) Hyperlipidemia Current visit: No Status: Acute Qualifiers: Hyperlipidemia type: unspecified Qualified Code(s): E78.5 - Hyperlipidemia , unspecified (5) Hypertension Current visit: No Status: Acute Continue metoprolol and lisinopril HCTZ. Qualifiers: Hypertension type: essential hypertension Qualified Code(s): I10 - Essential (primary) hypertension (6) Tobacco abuse Current visit: No Status: Acute I advised smoking cessation and provided counseling. (7) Elevated d-dimer Current visit: Yes Status: Acute Patient's d-dimer is elevated. We will obtain CT angiogram to rule out PE. Internal Medicine - H&P: HPI Chief complaint: Cough and congestion Admitted From: Emergency Dept Plans for Post Hospital Care: Home History of present illness: Ms. Bustos is a 67 year old female with past medical history significant for COPD and recent admission during which she was diagnosed with thoracic aortic aneurysm who presents to the hospital for evaluation of cough and congestion which have been progressively worse for the last 2 days. Today the symptoms were severe. She denies sputum production, reports associated subjective fevers and chills. Denies chest pain. Past medical history: COPD, hypertension, GERD, hyperlipidemia, thoracoabdominal aortic aneurysm. Surgical history: Hysterectomy Family history: Patient's father suffered with CAD, mother suffered with breast cancer Social history: Smokes 10 cigarettes day, denies alcohol and drug use. Past Med Surg Social Fam HX - Past Medical History Medical history: COPD, GERD, hyperlipidemia, hypertension, other Psychiatric history: anxiety - Past Surgical History Surgical History: non-contributory - Social History Smoking Status: Current every day smoker Smokeless Tobacco Status: No Alcohol use: none Drug use: none - Family History Mother Living Status: Father Living Status: Still Living Internal Medicine - H&P: Meds Albuterol Sulfate [Ventolin Hfa] 2 puff IH Q4H PRN 06/26/17 [History] Meclizine HCl [Verticalm] 25 mg PO TID PRN 06/26/17 [History] Nystatin POWDER [Nystop] 1 appl TP BID 06/26/17 [History] Pravastatin Sodium [Pravachol] 40 mg PO HS 06/26/17 [History] Ranitidine HCl [Zantac] 150 mg PO BID 06/26/17 [History] ALPRAZolam [Xanax 0.5 MG Tablet] 0.25 mg PO BID PRN #30 tablet 06/29/17 [Rx] Buspirone HCl [Buspar] 5 mg PO BID #180 tablet 06/29/17 [Rx] FLUoxetine HCl [Prozac] 20 mg PO DAILY #90 capsule 06/29/17 [Rx] Lisinopril-HCTZ 10-12.5 [Prinzide 10-12.5] 1 each PO DAILY #90 tablet 06/29/17 [ Rx] Metoprolol XL (24 HR) Succ [Toprol XL] 50 mg PO DAILY #90 tab.er.24h 06/29/17 [ Rx] Nicotine Patch [Nicoderm] 14 mg TD DAILY #30 patch.td24 06/29/17 [Rx] 3 Allergy/AdvReac Type Severity Reaction Status Date / Time No Known Allergies Allergy Verified 07/18/17 21:29 All Systems PM: A 10-system review of systems was performed and is negative for pertinent findings except as documented above in the HPI. - Constitutional Vitals: Temp Pulse Resp BP Pulse Ox 98.6 F 90 16 126/58 89 07/18/17 21:27 07/19/17 00:14 07/19/17 00:14 07/19/17 00:14 07/19/17 00:14 General appearance: Present: A&O X 3 - Eye Eye exam: Present: PERRL, conjuntiva pink, sclera anicteric Pupils: Present: PERRL - Respiratory Respiratory exam: Present: CTAB, wheezes. Absent: accessory muscle use, rales, rhonchi - Cardiovascular Cardiovascular exam: Present: RRR, +S1, +S2. Absent: diastolic murmur, gallop, rubs, systolic murmur - GI/Abdominal GI/Abdominal exam: Present: normal bowel sounds, soft, no peritoneal signs. Absent: distended, tenderness - Extremities Exam Extremities exam: Present: warm, radial pulses palpable and symmetrical. Absent : calf tenderness, cyanotic, pedal edema - Skin Skin exam: Present: dry, intact Internal Med - H&P Results - Labs CBC & Chem 7: 07/18/17 22:41 07/18/17 22:41
[2017-07-19] MEDS ORDERED: *HR* OxyCODONE Immed Rel 5 MG TABLET PO PRN (01:32)
[2017-07-19] MEDS ORDERED: Ondansetron 4 MG/2 ML VIAL IVP PRN (01:32)
[2017-07-19] MEDS ORDERED: Acetaminophen 325 MG TABLET PO PRN (01:32)
[2017-07-19] MEDS ORDERED: Naloxone 0.4 MG/ML INJ IVP PRN (01:32)
[2017-07-19 02:53] LABS: Basophils # 0.1 K/mcL (0.0-0.2); Basophils % 0.3 %; Hematocrit 43.1 % (35.3-44.9); Hemoglobin 14.5 g/dL (11.5-15.4); Immature Granulocytes % 0.9 % (0-4); Immature Platelets 3.1 % (1.1-6.1); Lymphocytes # 0.6 K/mcL (0.6-4.6); Lymphocytes % 3.3 %; Mean Corpuscular HGB Conc 33.6 g/dL (31.6-35.5); Mean Platelet Volume 9.1 fL (9.4-12.4); Monocytes # 0.2 K/mcL (0.0-1.3); Monocytes % 1.4 %; Neutrophils # 15.9 K/mcL (1.6-8.9); Platelet Count 250 K/mcL (140-400); Red Blood Count 4.84 M/mcL (3.82-4.97); Red Cell Distribution Width 14.1 % (11.5-14.5); Segmented Neutrophils % 94.1 %
[2017-07-19 03:06] LABS: Calcium 8.6 mg/dL (8.6-10.8); Phosphorous 2.4 mg/dL (2.3-4.7); Potassium 3.5 mEq/L (3.5-4.5)
[2017-07-19] MEDS: Ipratropium/Albuterol Neb 3 ML IH SCH ×6 (03:44→23:24)
[2017-07-19] MEDS: FLUoxetine 20 MG CAPSULE PO SCH (09:14)
[2017-07-19] MEDS: methylPREDNISolone 125 MG/2 ML VIAL IVP SCH ×2 (09:14→16:41)
[2017-07-19] MEDS: Famotidine 20 MG TABLET PO SCH ×2 (09:14→21:08)
[2017-07-19] MEDS: Metoprolol XL (24 HR) Succ 50 MG TAB.ER.24H PO SCH (09:14)
[2017-07-19] MEDS: Piperacillin/Tazobactam 3.375 GM in 0.9 % Sodium Chloride Mini Bag 100 ML IVPB SCH ×2 (09:15→16:41)
[2017-07-19] MEDS: Levofloxacin 750 MG/150 ML 750 MG/150 ML BAG IVPB SCH (09:16)
[2017-07-19] MEDS: Nystatin POWDER 30 GM BOTTLE TP SCH ×2 (09:16→21:09)
[2017-07-19] MEDS: ALPRAZolam 0.5 MG TABLET PO PRN ×2 (09:19→21:30)
[2017-07-19] MEDS ORDERED: 0.9 % Sodium Chloride 1,000 ML IV SCH (17:15)
[2017-07-20] MEDS: methylPREDNISolone 125 MG/2 ML VIAL IVP SCH ×2 (00:38→09:51)
[2017-07-20] MEDS: Piperacillin/Tazobactam 3.375 GM in 0.9 % Sodium Chloride Mini Bag 100 ML IVPB SCH ×4 (00:38→23:48)
[2017-07-20] MEDS: Ipratropium/Albuterol Neb 3 ML IH SCH ×5 (03:29→19:47)
[2017-07-20 08:52] LABS: Basophils % 0.1 %; Hematocrit 41.3 % (35.3-44.9); Hemoglobin 13.8 g/dL (11.5-15.4); Immature Granulocytes % 1.3 % (0-4); Lymphocytes # 0.8 K/mcL (0.6-4.6); Lymphocytes % 3.5 %; Mean Corpuscular HGB Conc 33.4 g/dL (31.6-35.5); Mean Corpuscular Hemoglobin 29.8 pg (28.0-33.3); Mean Corpuscular Volume 89.2 fL (83.0-100.0); Mean Platelet Volume 9.6 fL (9.4-12.4); Monocytes # 0.2 K/mcL (0.0-1.3); Monocytes % 0.9 %; Platelet Count 247 K/mcL (140-400); Red Blood Count 4.63 M/mcL (3.82-4.97); Red Cell Distribution Width 14.6 % (11.5-14.5); Segmented Neutrophils % 94.2 %
[2017-07-20 09:04] LABS: Calcium 8.9 mg/dL (8.6-10.8); Potassium 3.5 mEq/L (3.5-4.5)
[2017-07-20] MEDS: Levofloxacin 750 MG/150 ML 750 MG/150 ML BAG IVPB SCH (09:50)
[2017-07-20] MEDS: Metoprolol XL (24 HR) Succ 50 MG TAB.ER.24H PO SCH (09:51)
[2017-07-20] MEDS: Famotidine 20 MG TABLET PO SCH (09:51)
[2017-07-20] MEDS: Nystatin POWDER 30 GM BOTTLE TP SCH ×2 (09:51→22:06)
[2017-07-20] MEDS: FLUoxetine 20 MG CAPSULE PO SCH (09:51)
--- NOTE | 2017-07-20 10:56 | Electrocardiograph Report ---
[place] [id number] Test Date: 2017-07-18 Pat Name: Debra Bustos Department: 102 Room: [facility] Gender: F Bar Catcher: Kingsley : 1950 Requested By: Moncho Ugarte Order Number: [id number] Reading MD: Dean Antonio MD Measurements Intervals [place] Rate: 80 P: 73 [place]: 167 QRS: -37 QRSD: 77 T: 67 QT: 348 QTc: 384 Interpretive Statements SINUS RHYTHM LEFT ATRIAL ENLARGEMENT MARKED LEFT AXIS DEVIATION Electronically Signed On 07-20-2017 10:54:41 EST by Dean Antonio MD
[2017-07-20] MEDS: ALPRAZolam 0.5 MG TABLET PO PRN ×2 (13:12→22:10)
--- NOTE | 2017-07-20 18:45 | Internal Med Progress Note ---
Date of Encounter: 07/20/17 Time of Encounter: 11:00 - Assessment and plan (1) Healthcare-associated pneumonia Current Visit: Yes Status: Acute Assessment and plan: -We will continue IV Zosyn and IV Levaquin. (2) Acute exacerbation of chronic obstructive airways disease Current Visit: Yes Status: Acute Assessment and plan: -Secondary to the above; continue duo nebs (3) Hypertension Current Visit: No Status: Acute Assessment and plan: Continue home medications Qualifiers: Hypertension type: essential hypertension Qualified Code(s): I10 - Essential (primary) hypertension (4) Hyperlipidemia Current Visit: No Status: Acute Assessment and plan: Continue home medications Qualifiers: Hyperlipidemia type: unspecified Qualified Code(s): E78.5 - Hyperlipidemia , unspecified (5) DVT prophylaxis Current Visit: No Status: Acute Assessment and plan: Subcutaneous heparin - Subjective Interval history: Patient with no acute events overnight - Constitutional Vitals: Temp Pulse Resp BP Pulse Ox 97.6 F 84 18 128/87 91 07/20/17 15:59 07/20/17 15:59 07/20/17 16:15 07/20/17 15:59 07/20/17 16:15 General appearance: Present: A&O X 3 - Respiratory Respiratory exam: Present: CTAB. Absent: accessory muscle use, rales, rhonchi, wheezes - Cardiovascular Cardiovascular exam: Present: RRR, +S1, +S2. Absent: diastolic murmur, gallop, rubs, systolic murmur Internal Medicine: Result - Labs CBC & Chem 7: 07/20/17 08:39 07/20/17 08:39 Labs: Short CBC 07/20/17 Range/Units 08:39 WBC 23.4 H (4.3-11.1) K/mcL Hgb 13.8 (11.5-15.4) g/dL Hct 41.3 (35.3-44.9) % Plt Count 247 (140-400) K/mcL Neutrophils # 22.0 H (1.6-8.9) K/mcL BMP 07/20/17 08:39 Sodium 135 L Potassium 3.5 Chloride 104 Carbon Dioxide 21 BUN 18 Creatinine 1.23 H Glucose 174 H Calcium 8.9 - ABG Interpretation ABG results: PT/INR, D-dimer D-Dimer 978 ng/mLFEU (0-500) H 07/19/17 00:27 - Impressions Impressions Pulmonary Perfusion Imaging 07/20/17 07:00 IMPRESSION: Very low probability for pulmonary embolism. D/ / Mumtaz Rai MD / Mumtaz Rai MD Interpreting Provider: Mumtaz Rai MD Chest X-Ray 07/20/17 14:00 IMPRESSION: New right pleural effusion. D/ / Martina Winchester MD / Martina Winchester MD Interpreting Provider: Martina Winchester MD Consult Discharge Plan - Plan Referrals: Charlotte Cortez CNP [Primary Care Provider] - 07/27/17 1:00 pm Renetta Renteria MD [Partnered Physician] - 07/30/17 3:30 pm
[2017-07-21] MEDS: Ipratropium/Albuterol Neb 3 ML IH SCH ×4 (00:08→11:06)
[2017-07-21] MEDS ORDERED: Melatonin 3 MG TABLET PO SCH (00:45)
[2017-07-21] MEDS: ALPRAZolam 0.5 MG TABLET PO PRN (05:30)
[2017-07-21] MEDS ORDERED: *HR* Heparin 5,000 UNIT/ML VIAL SQ SCH (06:00)
[2017-07-21] MEDS: Piperacillin/Tazobactam 3.375 GM in 0.9 % Sodium Chloride Mini Bag 100 ML IVPB SCH (08:42)
[2017-07-21] MEDS: Metoprolol XL (24 HR) Succ 50 MG TAB.ER.24H PO SCH (08:43)
[2017-07-21] MEDS: FLUoxetine 20 MG CAPSULE PO SCH (08:43)
[2017-07-21] MEDS: Nystatin POWDER 30 GM BOTTLE TP SCH (08:44)
[2017-07-21] MEDS ORDERED: predniSONE 20 MG TABLET PO SCH (09:00)
[2017-07-21] MEDS ORDERED: Famotidine 20 MG TABLET PO SCH (09:00)
[2017-07-21 09:09] VITALS: BP 110/67
--- NOTE | 2017-07-21 11:19 | Discharge Summary ---
Date of Encounter: 07/21/17 Time of Encounter: 09:45 - Discharge Diagnosis (1) Pneumonia Priority: Primary Status: Acute Qualifiers: Pneumonia type: due to unspecified organism Laterality: left Lung location: upper lobe of lung Qualified Code(s): J18.1 - Lobar pneumonia, unspecified organism (2) Hypertension Priority: Secondary Status: Acute Qualifiers: Hypertension type: essential hypertension Qualified Code(s): I10 - Essential (primary) hypertension (3) Hyperlipidemia Priority: Secondary Status: Chronic Qualifiers: Hyperlipidemia type: unspecified Qualified Code(s): E78.5 - Hyperlipidemia , unspecified (4) Tobacco abuse Priority: Secondary Status: Chronic (5) Acute exacerbation of chronic obstructive airways disease Priority: Secondary Status: Acute (6) Healthcare-associated pneumonia Priority: Secondary Status: Acute (7) Elevated d-dimer Priority: Secondary Status: Acute (8) Chronic kidney disease, stage III (moderate) Priority: Secondary Status: Chronic - Discharge Medications Prescriptions: levoFLOXacin [Levaquin] 750 mg PO Q48H #5 tablet predniSONE [PredniSONE] 10 mg PO DAILY 8 Days tablet Home Medications: Albuterol Sulfate [Ventolin Hfa] 2 puff IH Q4H PRN 06/26/17 [History] Meclizine HCl [Verticalm] 25 mg PO TID PRN 06/26/17 [History] Pravastatin Sodium [Pravachol] 40 mg PO HS 06/26/17 [History] Ranitidine HCl [Zantac] 150 mg PO BID 06/26/17 [History] ALPRAZolam [Xanax 0.5 MG Tablet] 0.25 mg PO BID PRN #30 tablet 06/29/17 [Rx] Buspirone HCl [Buspar] 5 mg PO BID #180 tablet 06/29/17 [Rx] FLUoxetine HCl [Prozac] 20 mg PO DAILY #90 capsule 06/29/17 [Rx] Metoprolol XL (24 HR) Succ [Toprol Xl] 50 mg PO DAILY #90 tab.er.24h 06/29/17 [ Rx] Lisinopril-HCTZ 10-12.5 [Prinzide 10-12.5] 1 tab PO DAILY 07/19/17 [History] levoFLOXacin [Levaquin] 750 mg PO Q48H #5 tablet 07/21/17 [Rx] predniSONE [PredniSONE] 10 mg PO DAILY 8 Days tablet 07/21/17 [Rx] Allergies/Adverse Reactions: 3 Allergy/AdvReac Type Severity Reaction Status Date / Time No Known Allergies Allergy Verified 07/18/17 21:29 Procedures/tests Complete & Pending: Procedures Performed prior 72 hours Category Date Time Status NM pul vent and perfuse [NM] Routine Exams 07/20/17 07:00 Completed Date of admission: 07/19/17 00:58 Primary care physician: Charlotte Cortez CNP Discharging clinician: Jessica Zhu Anticipated date of discharge: 07/21/17 - Patient Status Disposition: Home, Self-Care Condition: Good Functional capacity at discharge: independent ambulation Overall status at discharge: patient is progressing back to baseline - Discharge Instructions Instructions: Prednisone (By mouth), Levofloxacin (By mouth), Pneumonia (DC) Follow Up With: Charlotte Cortez CNP [Primary Care Provider] - 07/27/17 1:00 pm Renetta Renteria MD [Partnered Physician] - 07/30/17 3:30 pm - Diet and Activity Activity: increase activity as tolerated Diet: low fat, low cholesterol, low salt diet Hospital course: Ms. Bustos is a 67 year old female patient with history of COPD, hypertension, hyperlipidemia who was admitted here with pneumonia and that was healthcare associated as she had recently been hospitalized and COPD exacerbation. She was treated with IV antibiotics, IV steroids and bronchodilators and has slowly improved. She is now doing much better and wishes to go home. She will Be discharged home on a prednisone taper and oral levofloxacin. She will follow up with her primary care provider for further management. - Time Spent with Patient Total time spent providing and/or coordinating discharge services: Greater than 30 minutes (35 min) - Constitutional Vitals: Temp Pulse Resp BP Pulse Ox 97.4 F L 99 18 110/67 94 07/21/17 09:08 07/21/17 09:08 07/21/17 11:08 07/21/17 09:08 07/21/17 11:08 General appearance: Present: A&O X 3, pleasant, no acute distress, answers questions appropriately - Neck Neck exam general surgery: Present: supple, trachea midline. Absent: lymphadenopathy - Respiratory Respiratory exam: Present: CTAB, prolonged expiratory phase. Absent: accessory muscle use, rales, rhonchi, wheezes - Cardiovascular Cardiovascular exam: Present: RRR, +S1, +S2. Absent: diastolic murmur, gallop, rubs, systolic murmur - GI/Abdominal GI/Abdominal exam: Present: normal bowel sounds, soft, no peritoneal signs. Absent: distended, tenderness
[2017-07-21] MEDS ORDERED: Piperacillin/Tazobactam 3.375 GM/200 ML BAG IVPB SCH (16:00)
[2017-07-22] MEDS ORDERED: Levofloxacin 750 MG/150 ML 750 MG/150 ML BAG IVPB SCH (09:00)
== END 2017-07-21 12:40 | disposition home or self-care (01) ==
LOC: 2NENU 21:21 → EMEROO 21:21 → SUATTDRO 07-19 00:58 → 2NENU 07-19 01:46
PROVIDERS: ADMIT Internal Medicine; ATTEND Internal Medicine

== ENCOUNTER 2021-03-06 12:50 | Inpatient (IN) ==
[2021-03-06 13:53] LABS: Basophils # 0.1 K/mcL (0.0-0.2); Basophils % 0.8 %; Eosinophils # 0.4 K/mcL (0.0-0.6); Eosinophils % 4.7 %; Hematocrit 42.9 % (35.3-44.9); Hemoglobin 13.8 g/dL (11.5-15.4); Immature Granulocytes % 0.3 % (0-4); Lymphocytes # 2.7 K/mcL (0.6-4.6); Lymphocytes % 29.9 %; Mean Corpuscular HGB Conc 32.2 g/dL (31.6-35.5); Mean Corpuscular Hemoglobin 29.7 pg (28.0-33.3); Mean Corpuscular Volume 92.3 fL (83.0-100.0); Mean Platelet Volume 9.7 fL (9.4-12.4); Monocytes # 0.7 K/mcL (0.0-1.3); Monocytes % 7.4 %; Neutrophils # 5.1 K/mcL (1.6-8.9); Platelet Count 264 K/mcL (140-400); Red Blood Count 4.65 M/mcL (3.82-4.97); Red Cell Distribution Width 13.7 % (11.5-14.5); Segmented Neutrophils % 56.9 %
[2021-03-06] MEDS ORDERED: Isovue-370 500 ML BOTTLE IVP ONE (14:08)
[2021-03-06 14:12] LABS: Alanine Aminotransferase 30 Units/L (7-52); Albumin 3.8 g/dL (3.5-5.7); Albumin/Globulin Ratio 1.3 (1.1-2.2); Alkaline Phosphatase 131 Units/L (34-104); Amylase 48 Units/L (29-103); Aspartate Amino Transferase 15 Units/L (13-39); BUN/Creatinine Ratio 9 (6-26); Bilirubin,Direct 0.1 mg/dL (0.0-0.2); Bilirubin,Indirect 0.5 mg/dL (0.0-1.0); Bilirubin,Total 0.6 mg/dL (0.3-1.0); Blood Urea Nitrogen 10 mg/dL (8-23); Calcium 9.3 mg/dL (8.6-10.3); Carbon Dioxide 29 mEq/L (23-29); Chloride 106 mEq/L (98-107); Globulin 2.9 g/dL (2.4-3.5); Glucose 95 mg/dL (70-105); Lipase 6 Units/L (11-82); Osmolality,Calculated 291 (280-300); Sodium 141 mEq/L (136-145); Total Protein 6.7 g/dL (6.4-8.9); eGFR For African Americans > 60 (> 60); eGFR For Non-African Americans 50 (> 60)
[2021-03-06] MEDS ORDERED: Naloxone 0.4 MG/ML INJ IVP PRN (17:25)
[2021-03-06] MEDS ORDERED: Ondansetron 4 MG/2 ML VIAL IVP PRN (17:25)
[2021-03-06 18:24] LABS: Troponin I < 0.03 ng/mL (< 0.04)
[2021-03-06] MEDS: 0.9 % Sodium Chloride 1,000 ML IVC SCH (19:45)
[2021-03-06] MEDS: Ampicillin/Sulbactam 1,500 MG in 0.9 % Sodium Chloride Mini Bag 100 ML IVPB SCH (19:45)
[2021-03-06] MEDS: *HR* Heparin 5,000 UNIT/ML VIAL SQ SCH (19:53)
[2021-03-06] MEDS: Nicotine 14 MG PATCH.TD24 TD SCH (19:53)
[2021-03-07] MEDS ORDERED: Acetaminophen IV 1,000 MG/100 ML BAG IVPB ONE ×3 (00:08→10:56)
[2021-03-07] MEDS ORDERED: Acetaminophen IV 1,000 MG/100 ML BAG IVPB SCH (00:17)
[2021-03-07] MEDS: Ampicillin/Sulbactam 1,500 MG in 0.9 % Sodium Chloride Mini Bag 100 ML IVPB SCH ×5 (00:27→23:27)
[2021-03-07 02:30] LABS: Calcium 8.8 mg/dL (8.6-10.3); Potassium 4.3 mEq/L (3.5-5.1)
[2021-03-07 03:40] LABS: Basophils # 0.1 K/mcL (0.0-0.2); Basophils % 0.6 %; Eosinophils # 0.4 K/mcL (0.0-0.6); Eosinophils % 5.2 %; Hematocrit 39.2 % (35.3-44.9); Hemoglobin 12.5 g/dL (11.5-15.4); Immature Granulocytes % 0.2 % (0-4); Lymphocytes # 2.1 K/mcL (0.6-4.6); Lymphocytes % 25.7 %; Mean Corpuscular HGB Conc 31.9 g/dL (31.6-35.5); Mean Corpuscular Hemoglobin 29.5 pg (28.0-33.3); Mean Corpuscular Volume 92.5 fL (83.0-100.0); Monocytes # 0.8 K/mcL (0.0-1.3); Monocytes % 9.6 %; Neutrophils # 4.8 K/mcL (1.6-8.9); Platelet Count 262 K/mcL (140-400); Red Blood Count 4.24 M/mcL (3.82-4.97); Red Cell Distribution Width 13.9 % (11.5-14.5); Segmented Neutrophils % 58.7 %; White Blood Count 8.2 K/mcL (4.3-11.1)
[2021-03-07] MEDS: Nicotine 14 MG PATCH.TD24 TD SCH (07:44)
[2021-03-07] MEDS: *HR* Heparin 5,000 UNIT/ML VIAL SQ SCH ×2 (07:44→17:59)
[2021-03-07] MEDS: 0.9 % Sodium Chloride 1,000 ML IVC SCH (07:45)
[2021-03-07] MEDS ORDERED: *HR* HYDROmorphone PF 0.5 MG/0.5 ML SYRINGE IVP PRN ×2 (10:07→13:33)
[2021-03-07] MEDS ORDERED: Ondansetron 4 MG/2 ML VIAL IVP PRN ×2 (10:07→13:33)
[2021-03-07] MEDS ORDERED: Lidocaine HCL 4 ML Topical Solution (Laryng-O-Jet Kit Sterile Pak) TP ONE (10:15)
[2021-03-07] MEDS ORDERED: *HR* FentaNYL (PF) 100 MCG/2 ML VIAL ONE (10:17)
[2021-03-07] MEDS ORDERED: Lidocaine -MPF 2% 2 ML VIAL ONE (10:18)
[2021-03-07] MEDS ORDERED: Ondansetron 4 MG/2 ML VIAL ONE (10:18)
[2021-03-07] MEDS ORDERED: *HR* Rocuronium Bromide 50 MG/5 ML VIAL ONE (10:18)
[2021-03-07] MEDS ORDERED: *HR* HYDROMORPHONE 2 MG/ML VIAL ONE (10:20)
[2021-03-07] MEDS ORDERED: *HR* Magnesium Sulfate 1 GM/2 ML VIAL ONE (10:20)
[2021-03-07] MEDS ORDERED: Isovue-300 50ML VIAL ONE (10:26)
[2021-03-07] MEDS ORDERED: CefOXitin 2,000 MG VIAL ONE ×3 (10:33→11:10)
[2021-03-07] MEDS ORDERED: cefOXitin 2,000 MG in Water for inj. (sterile) 20 ML IVP ONE (10:48)
[2021-03-07] MEDS ORDERED: cefOXitin 1,000 MG in 0.9 % Sodium Chloride Mini Bag 100 ML IVPB ONE (11:00)
[2021-03-07] MEDS ORDERED: EPHEDrine 50 MG/ML VIAL ONE (11:09)
[2021-03-07] MEDS ORDERED: *HR* Labetalol 20 MG/4 ML SYRINGE IVP ONE (12:06)
[2021-03-07] MEDS ORDERED: Naloxone 0.4 MG/ML INJ IVP PRN (13:33)
[2021-03-07] MEDS ORDERED: 0.9 % Sodium Chloride 1,000 ML IVC SCH (13:33)
[2021-03-07] MEDS ORDERED: ALPRAZolam 1 MG TABLET PO PRN (13:33)
[2021-03-07] MEDS ORDERED: Ipratropium/Albuterol Neb 3 ML IH PRN (13:33)
[2021-03-08 04:02] LABS: Albumin 3.7 g/dL (3.5-5.7); Albumin/Globulin Ratio 1.3 (1.1-2.2); Bilirubin,Total 0.3 mg/dL (0.3-1.0); Calcium 8.9 mg/dL (8.6-10.3); Globulin 2.8 g/dL (2.4-3.5); Total Protein 6.5 g/dL (6.4-8.9)
[2021-03-08] MEDS: Ampicillin/Sulbactam 1,500 MG in 0.9 % Sodium Chloride Mini Bag 100 ML IVPB SCH ×3 (05:16→17:28)
[2021-03-08] MEDS: *HR* Heparin 5,000 UNIT/ML VIAL SQ SCH ×2 (05:19→18:42)
[2021-03-08] MEDS: Nicotine 14 MG PATCH.TD24 TD SCH (08:52)
[2021-03-08] MEDS: Metoprolol XL (24 HR) Succ 50 MG TAB.ER.24H PO SCH (08:53)
[2021-03-08] MEDS: Budesonide/Formoterol 160/4.5 1 PUFF INH IH SCH ×2 (09:57→19:35)
[2021-03-08] MEDS: Tiotropium 10 INH DOSE IH SCH (09:57)
[2021-03-08] MEDS ORDERED: *HR* Meperidine 25 MG/ML SYRINGE IVP PRN (12:35)
[2021-03-08] MEDS ORDERED: Lidocaine HCL 4 ML Topical Solution (Laryng-O-Jet Kit Sterile Pak) TP ONE (12:35)
[2021-03-08] MEDS ORDERED: Lidocaine -MPF 4% 5 ML AMPUL ONE (12:35)
[2021-03-08] MEDS ORDERED: Promethazine 6.25 MG in Water for inj. (sterile) 20 ML IVPB PRN (12:35)
[2021-03-08] MEDS ORDERED: *HR* Succinylcholine 200 MG/10 ML VIAL IVP ONE (12:35)
[2021-03-08] MEDS ORDERED: *HR* FentaNYL (PF) 100 MCG/2 ML VIAL ONE (12:35)
[2021-03-08] MEDS ORDERED: *HR* FentaNYL (PF) 100 MCG/2 ML VIAL IVP PRN (12:35)
[2021-03-08] MEDS ORDERED: Ondansetron 4 MG/2 ML VIAL IVP PRN (12:35)
[2021-03-08] MEDS ORDERED: *HR* Midazolam HCl 2 MG/2 ML VIAL ONE (12:36)
[2021-03-08] MEDS ORDERED: *HR* Propofol 200 MG/20 ML VIAL IVP ONE (12:36)
[2021-03-08] MEDS ORDERED: Indomethacin 50 MG SUPP.RECT RC ONE (13:11)
[2021-03-08] MEDS: amLODIPine 5 MG TABLET PO SCH (20:14)
[2021-03-09] MEDS: Ampicillin/Sulbactam 1,500 MG in 0.9 % Sodium Chloride Mini Bag 100 ML IVPB SCH ×4 (00:43→17:13)
[2021-03-09 03:25] LABS: Basophils % 0.1 %; Hemoglobin 12.3 g/dL (11.5-15.4); Immature Granulocytes % 0.7 % (0-4); Lymphocytes % 7.9 %; Mean Corpuscular HGB Conc 31.5 g/dL (31.6-35.5); Mean Corpuscular Hemoglobin 29.7 pg (28.0-33.3); Mean Corpuscular Volume 94.2 fL (83.0-100.0); Mean Platelet Volume 9.6 fL (9.4-12.4); Monocytes # 0.5 K/mcL (0.0-1.3); Monocytes % 3.7 %; Neutrophils # 11.4 K/mcL (1.6-8.9); Platelet Count 325 K/mcL (140-400); Red Blood Count 4.14 M/mcL (3.82-4.97); Red Cell Distribution Width 13.6 % (11.5-14.5); Segmented Neutrophils % 87.6 %
[2021-03-09 03:54] LABS: Albumin 3.6 g/dL (3.5-5.7); Albumin/Globulin Ratio 1.4 (1.1-2.2); Bilirubin,Total 0.4 mg/dL (0.3-1.0); Globulin 2.6 g/dL (2.4-3.5); Potassium 4.4 mEq/L (3.5-5.1); Total Protein 6.2 g/dL (6.4-8.9)
[2021-03-09] MEDS: *HR* Heparin 5,000 UNIT/ML VIAL SQ SCH ×2 (05:51→17:13)
[2021-03-09] MEDS ORDERED: 0.9 % Sodium Chloride 1,000 ML IVC SCH ×2 (07:30→17:04)
[2021-03-09] MEDS: Budesonide/Formoterol 160/4.5 1 PUFF INH IH SCH ×2 (07:44→19:46)
[2021-03-09] MEDS: Tiotropium 10 INH DOSE IH SCH (07:44)
[2021-03-09] MEDS: Loratadine 10 MG TABLET PO SCH (08:04)
[2021-03-09] MEDS: Metoprolol XL (24 HR) Succ 50 MG TAB.ER.24H PO SCH (08:05)
[2021-03-09] MEDS: Nicotine 14 MG PATCH.TD24 TD SCH ×2 (08:06→10:51)
[2021-03-09 14:44] LABS: Bilirubin,Urine Negative (Negative); Blood,Urine Negative (Negative); Clarity,Urine Clear (Clear); Color,Urine Yellow (Yellow); Glucose,Urine (UA) Normal (Normal); Ketones,Urine Negative (Negative); Leukocyte Esterase,Urine Negative (Negative); Nitrite,Urine Negative (Negative); Protein,Urine Trace mg/dL (Neg-Trace); Specific Gravity,Urine 1.021 (1.010-1.025); Urobilinogen,Urine Normal (Normal)
[2021-03-09] MEDS ORDERED: ALPRAZolam 1 MG TABLET PO ONE (19:44)
[2021-03-09] MEDS: amLODIPine 5 MG TABLET PO SCH (20:23)
[2021-03-10] MEDS: Ampicillin/Sulbactam 1,500 MG in 0.9 % Sodium Chloride Mini Bag 100 ML IVPB SCH ×2 (00:12→05:36)
[2021-03-10] MEDS ORDERED: 0.9 % Sodium Chloride 1,000 ML IVC SCH (00:30)
[2021-03-10 02:24] LABS: Basophils % 0.3 %; Eosinophils # 0.1 K/mcL (0.0-0.6); Hematocrit 34.7 % (35.3-44.9); Hemoglobin 11.1 g/dL (11.5-15.4); Immature Granulocytes % 0.6 % (0-4); Lymphocytes # 2.5 K/mcL (0.6-4.6); Lymphocytes % 21.9 %; Mean Corpuscular Hemoglobin 29.9 pg (28.0-33.3); Mean Corpuscular Volume 93.5 fL (83.0-100.0); Mean Platelet Volume 9.8 fL (9.4-12.4); Monocytes # 1.2 K/mcL (0.0-1.3); Monocytes % 10.8 %; Neutrophils # 7.5 K/mcL (1.6-8.9); Platelet Count 315 K/mcL (140-400); Red Blood Count 3.71 M/mcL (3.82-4.97); Red Cell Distribution Width 13.6 % (11.5-14.5); Segmented Neutrophils % 65.4 %; White Blood Count 11.5 K/mcL (4.3-11.1)
[2021-03-10 02:34] LABS: Calcium 8.1 mg/dL (8.6-10.3); Potassium 3.8 mEq/L (3.5-5.1)
[2021-03-10] MEDS: *HR* Heparin 5,000 UNIT/ML VIAL SQ SCH (05:38)
[2021-03-10 06:49] VITALS: BP 121/87; PULSE 75; TEMP 98.6; O2SAT 91
[2021-03-10] MEDS: Budesonide/Formoterol 160/4.5 1 PUFF INH IH SCH (08:04)
[2021-03-10] MEDS: Tiotropium 10 INH DOSE IH SCH (08:05)
[2021-03-10] MEDS: Loratadine 10 MG TABLET PO SCH (08:27)
[2021-03-10] MEDS: Metoprolol XL (24 HR) Succ 50 MG TAB.ER.24H PO SCH (08:27)
== END 2021-03-10 11:45 | disposition home or self-care (01) | DRG 417 ==
LOC: 3ANU 12:50 → EMEROOARM 12:50 → SUATTDRO 17:33 → 3ANU 19:17
PROVIDERS: ADMIT Pharmacist; ATTEND General Practice

== ENCOUNTER 2021-04-25 11:15 | Inpatient (IN) ==
[2021-04-25] MEDS ORDERED: Azithromycin 500 MG in 0.9 % Sodium Chloride 250 ML IVPB ONE (11:33)
[2021-04-25] MEDS ORDERED: levoFLOXacin 750 MG/150 ML 750 MG/150 ML BAG IVPB ONE (11:34)
[2021-04-25] MEDS ORDERED: methylPREDNISolone 125 MG/2 ML VIAL IVP ONE (11:36)
[2021-04-25] MEDS ORDERED: Ipratropium/Albuterol Neb 3 ML IH ONE (11:36)
[2021-04-25 12:20] LABS: Basophils % 0.2 %; Eosinophils % 0.2 %; Hematocrit 41.1 % (35.3-44.9); Hemoglobin 13.7 g/dL (11.5-15.4); Immature Granulocytes % 0.2 % (0-4); Lymphocytes # 1.2 K/mcL (0.6-4.6); Lymphocytes % 30.4 %; Mean Corpuscular HGB Conc 33.3 g/dL (31.6-35.5); Mean Corpuscular Volume 89.9 fL (83.0-100.0); Mean Platelet Volume 10.4 fL (9.4-12.4); Monocytes # 0.3 K/mcL (0.0-1.3); Monocytes % 6.4 %; Neutrophils # 2.6 K/mcL (1.6-8.9); Platelet Count 158 K/mcL (140-400); Red Blood Count 4.57 M/mcL (3.82-4.97); Red Cell Distribution Width 14.4 % (11.5-14.5); Segmented Neutrophils % 62.6 %; White Blood Count 4.1 K/mcL (4.3-11.1)
[2021-04-25 12:29] LABS: INR 1.2; Prothrombin Time 13.3 Seconds (9.4-12.1)
[2021-04-25 12:30] LABS: Activated Partial Thrombo Time 33.7 Seconds (26.0-36.0)
[2021-04-25 12:37] LABS: Alanine Aminotransferase 8 Units/L (7-52); Albumin 3.4 g/dL (3.5-5.7); Albumin/Globulin Ratio 1.2 (1.1-2.2); Alkaline Phosphatase 77 Units/L (34-104); Aspartate Amino Transferase 19 Units/L (13-39); BUN/Creatinine Ratio 13 (6-26); Bilirubin,Direct 0.1 mg/dL (0.0-0.2); Bilirubin,Indirect 0.2 mg/dL (0.0-1.0); Bilirubin,Total 0.3 mg/dL (0.3-1.0); Blood Urea Nitrogen 17 mg/dL (8-23); Calcium 7.9 mg/dL (8.6-10.3); Carbon Dioxide 27 mEq/L (23-29); Chloride 102 mEq/L (98-107); Globulin 2.9 g/dL (2.4-3.5); Glucose 96 mg/dL (70-105); Lactate Dehydrogenase 203 Units/L (140-271); Lipase 16 Units/L (11-82); Magnesium 1.5 mg/dL (1.6-2.6); Osmolality,Calculated 283 (280-300); Phosphorous 2.8 mg/dL (2.7-4.5); Potassium 3.5 mEq/L (3.5-5.1); Sodium 136 mEq/L (136-145); Total Protein 6.3 g/dL (6.4-8.9); eGFR For African Americans 48 (> 60); eGFR For Non-African Americans 40 (> 60)
[2021-04-25 12:56] LABS: Ferritin 239 ng/mL (10-120)
[2021-04-25 13:06] LABS: VBG HCO3 26 mEq/L (21-27); VBG PCO2 46 mmHg (41-51); VBG PH 7.37 pH Units (7.32-7.42); VBG PO2 39 mmHg (25-50)
[2021-04-25 13:30] LABS: Troponin I < 0.03 ng/mL (< 0.04)
[2021-04-25 15:46] LABS: Adenovirus Not Detected (Not Detect); Bordetella Pertussis Not Detected (Not Detect); Chlamydophila pneumoniae Not Detected (Not Detect); Coronavirus 229E Not Detected (Not Detect); Coronavirus HKU1 Not Detected (Not Detect); Coronavirus NL63 Not Detected (Not Detect); Coronavirus OC43 Not Detected (Not Detect); Human Metapneumovirus Not Detected (Not Detect); Human Rhinovirus/Enterovirus Not Detected (Not Detect); Influenza A Subtype 2009 H1 Not Detected (Not Detect); Influenza B Not Detected (Not Detect); Mycoplasma pneumoniae Not Detected (Not Detect); Parainfluenza Virus 1 Not Detected (Not Detect); Parainfluenza Virus 2 Not Detected (Not Detect); Parainfluenza Virus 3 Not Detected (Not Detect); Parainfluenza Virus 4 Not Detected (Not Detect); Respiratory Syncytial Virus Not Detected (Not Detect)
[2021-04-25 15:48] LABS: SARS-CoV-2 DETECTED (Not Detect)
[2021-04-25] MEDS ORDERED: Melatonin 3 MG TABLET PO PRN (17:42)
[2021-04-25] MEDS ORDERED: Acetaminophen 325 MG TABLET PO PRN (17:42)
[2021-04-25] MEDS ORDERED: Ondansetron 4 MG/2 ML VIAL IVP PRN (17:42)
[2021-04-25] MEDS ORDERED: ALPRAZolam 1 MG TABLET PO PRN (17:44)
[2021-04-25] MEDS ORDERED: Nicotine 2 MG GUM BC PRN (17:56)
[2021-04-25 17:58] LABS: C-Reactive Protein 50 mg/L (Less than 10)
[2021-04-25] MEDS: Furosemide 40 MG/4 ML VIAL IVP SCH (20:17)
[2021-04-25] MEDS: Nicotine 21 MG PATCH.TD24 TD SCH (20:18)
[2021-04-25] MEDS: *HR* Heparin 5,000 UNIT/ML VIAL SQ SCH (20:24)
[2021-04-26 02:52] LABS: Hemoglobin 13.8 g/dL (11.5-15.4); Mean Corpuscular HGB Conc 33.7 g/dL (31.6-35.5); Mean Corpuscular Hemoglobin 30.3 pg (28.0-33.3); Mean Corpuscular Volume 89.9 fL (83.0-100.0); Mean Platelet Volume 10.4 fL (9.4-12.4); Platelet Count 167 K/mcL (140-400); Red Blood Count 4.56 M/mcL (3.82-4.97); Red Cell Distribution Width 14.2 % (11.5-14.5); White Blood Count 2.4 K/mcL (4.3-11.1)
[2021-04-26 03:27] LABS: Magnesium 1.7 mg/dL (1.6-2.6); Potassium 4.2 mEq/L (3.5-5.1)
[2021-04-26] MEDS: *HR* Heparin 5,000 UNIT/ML VIAL SQ SCH ×2 (05:02→19:17)
[2021-04-26] MEDS: Budesonide/Formoterol 160/4.5 1 PUFF INH IH SCH ×2 (08:11→20:50)
[2021-04-26] MEDS: Tiotropium 10 INH DOSE IH SCH (08:11)
[2021-04-26] MEDS ORDERED: Dexamethasone Sodium Phos/PF 10 MG/ML VIAL IVP SCH (09:00)
[2021-04-26] MEDS: Metoprolol XL (24 HR) Succ 50 MG TAB.ER.24H PO SCH (09:53)
[2021-04-26] MEDS: ALPRAZolam 1 MG TABLET PO SCH (09:53)
[2021-04-26] MEDS: Furosemide 40 MG/4 ML VIAL IVP SCH (09:54)
[2021-04-26] MEDS: Azithromycin 250 MG TABLET PO SCH (09:54)
[2021-04-26] MEDS: Nicotine 21 MG PATCH.TD24 TD SCH (09:54)
[2021-04-27] MEDS: *HR* Heparin 5,000 UNIT/ML VIAL SQ SCH ×2 (06:39→19:42)
[2021-04-27 08:03] LABS: Calcium 8.6 mg/dL (8.6-10.3); Magnesium 2.2 mg/dL (1.6-2.6); Phosphorous 3.3 mg/dL (2.7-4.5); Potassium 4.4 mEq/L (3.5-5.1)
[2021-04-27] MEDS: Tiotropium 10 INH DOSE IH SCH (08:05)
[2021-04-27] MEDS: Budesonide/Formoterol 160/4.5 1 PUFF INH IH SCH ×2 (08:05→20:06)
[2021-04-27 08:25] LABS: Hematocrit 41.3 % (35.3-44.9); Hemoglobin 13.7 g/dL (11.5-15.4); Mean Corpuscular HGB Conc 33.2 g/dL (31.6-35.5); Mean Corpuscular Hemoglobin 30.2 pg (28.0-33.3); Mean Platelet Volume 10.2 fL (9.4-12.4); Platelet Count 253 K/mcL (140-400); Red Blood Count 4.54 M/mcL (3.82-4.97); Red Cell Distribution Width 14.1 % (11.5-14.5)
[2021-04-27 08:26] LABS: White Blood Count 8.3 K/mcL (4.3-11.1)
[2021-04-27] MEDS: ALPRAZolam 1 MG TABLET PO SCH ×2 (10:30→21:21)
[2021-04-27] MEDS: Metoprolol XL (24 HR) Succ 50 MG TAB.ER.24H PO SCH (10:30)
[2021-04-27] MEDS: Azithromycin 250 MG TABLET PO SCH (10:30)
[2021-04-27] MEDS: Furosemide 40 MG/4 ML VIAL IVP SCH (10:32)
[2021-04-27] MEDS: Nicotine 21 MG PATCH.TD24 TD SCH (10:35)
[2021-04-28] MEDS: *HR* Heparin 5,000 UNIT/ML VIAL SQ SCH ×2 (05:28→16:24)
[2021-04-28] MEDS: ALPRAZolam 1 MG TABLET PO SCH ×2 (09:12→19:49)
[2021-04-28] MEDS: Nicotine 21 MG PATCH.TD24 TD SCH (09:12)
[2021-04-28] MEDS: Metoprolol XL (24 HR) Succ 50 MG TAB.ER.24H PO SCH (09:12)
[2021-04-28] MEDS: Azithromycin 250 MG TABLET PO SCH (09:12)
[2021-04-28] MEDS: Furosemide 40 MG/4 ML VIAL IVP SCH (09:18)
[2021-04-28] MEDS: Budesonide/Formoterol 160/4.5 1 PUFF INH IH SCH ×2 (10:07→19:58)
[2021-04-28] MEDS: Tiotropium 10 INH DOSE IH SCH (10:07)
[2021-04-29] MEDS: *HR* Heparin 5,000 UNIT/ML VIAL SQ SCH ×2 (05:42→16:18)
[2021-04-29] MEDS: Tiotropium 10 INH DOSE IH SCH (07:50)
[2021-04-29] MEDS: Budesonide/Formoterol 160/4.5 1 PUFF INH IH SCH (07:50)
[2021-04-29] MEDS: Azithromycin 250 MG TABLET PO SCH (08:57)
[2021-04-29] MEDS: Nicotine 21 MG PATCH.TD24 TD SCH (08:57)
[2021-04-29] MEDS: ALPRAZolam 1 MG TABLET PO SCH (08:58)
[2021-04-29] MEDS: Metoprolol XL (24 HR) Succ 50 MG TAB.ER.24H PO SCH (08:58)
[2021-04-29] MEDS: Furosemide 40 MG/4 ML VIAL IVP SCH (08:58)
[2021-04-29] MEDS ORDERED: GuaiFENesin/Pseudophedrine TABLET PO SCH (09:00)
[2021-04-29 10:57] VITALS: BP 112/75; PULSE 66; TEMP 97.5; O2SAT 95
== END 2021-04-29 17:40 | disposition home or self-care (01) | DRG 871 ==
LOC: 3NENU 11:15 → EMEROOARM 11:15 → SUATTDRO 18:21 → 3NENU 18:53 → 3BNU 04-28 01:18
PROVIDERS: ADMIT Internal Medicine; ATTEND Internal Medicine